=== PATIENT | female | born 1995 | race Caucasian/White ===

== ENCOUNTER 2024-05-18 14:20 | Outpatient (RCR) | payer OTHER, SELFPAY ==
[2024-05-18 15:30] LABS: HCG Quantitative 6243 mIU/mL
[2024-05-20 13:38] LABS: HCG Quantitative 4691 mIU/mL
== END 2024-05-26 12:36 | disposition home or self-care (01) ==
LOC: LAB 14:20
PROVIDERS: Visit Provider Obstetrics & Gynecology
DX: O02.1 Missed abortion (principal); Z32.01 Encounter for pregnancy test, result positive; N92.6 Irregular menstruation, unspecified
CPT/HCPCS: 36415; 84702

== ENCOUNTER 2024-05-30 12:35 | Outpatient (OUT) | payer OTHER, SELFPAY ==
--- NOTE | 2024-05-30 12:47 | US_ITS ---
The [address] [address] Patient Name: MCKINLEY HSIEH MRN: [id number] date: 1995 Sex: F Assigned Patient Location: US Current Patient Location: US Accession/Order Number: [id number] Exam Date: 05/30/2024 12:50 Report Date: 05/30/2024 15:30 At the request of: SHERIN BOYD Procedure: US OB transvaginal EXAMINATION: US OB transvaginal HISTORY: With Uncertain Viability COMPARISON: Ultrasound OB transvaginal 05/18/2024 FINDINGS: GESTATIONAL SAC: 2 adjacent gestational sacs within endometrial cavity which are slightly irregular/elongated in shape. YOLK SAC: Present within the left gestational sac. Absent within the right gestational sac. POLE: Absent CARDIAC: Absent UTERUS: Normal size and appearance. OVARIES: Right: Normal. Left: Corpus lutein cyst. CERVIX: 3.8 cm in length and closed. CUL-DE-SAC: Normal. OTHER: None. AGE BY LMP: 7 weeks 4 days PANTERA BY LMP: 01/12/2025 AGE BY US: Approximately 7 weeks 4 days by gestational sac size PANTERA BY US: 01/12/2025 US/US OB transvaginal IMPRESSION: 1. 2 adjacent gestational sacs within endometrial cavity; both are slightly irregular/elongated. One of these contains a yolk sac, the other does not. No pole at this time within either. 2. Blighted ovum cyst versus early intrauterine pregnancies. Electronically authenticated by: YAO PELAYO Date: 05/30/2024 15:30
[2024-05-30 13:53] LABS: HCG Quantitative 602 mIU/mL
== END 2024-05-30 12:36 | disposition home or self-care (01) ==
LOC: US 12:35
PROVIDERS: Visit Provider Obstetrics & Gynecology
DX: O02.1 Missed abortion (principal); N92.6 Irregular menstruation, unspecified
CPT/HCPCS: 36415; 76817; 84702

== ENCOUNTER 2024-06-06 11:00 | Outpatient (OUT) | payer OTHER, SELFPAY ==
--- OUTSIDE RECORDS SUMMARY | 2024-06-06 11:17 | XMS_ITS | CCD ---
Author Organization [facility] Care Team Providers Care Sr Vice President Name Role Phone NATESHANIA Referring Unavailable NATE SHANIA Primary Care Unavailable Nate BUDDHIST MONK - Shania MARISCAL Primary Care Provider Delicia Morales DO Primary Care Provider TWAN ., DR DUFF Consulting Unavailable TWAN ., DR DUFF Admitting Unavailable [facility] Unava ilable TWAN ., DR DUFF Attending Unavailable [facility] Unava ilable GERA SANDERS Admitting Unavailable TOMMY, GERA Attending Unavailable GERA SANDERS Consulting Unavailable MISC, DR PAINTING Admitting Unavailable [facility] Unava ilable MISC, DR PAINTING Attending Unavailable MISC, DR PAINTING Consulting Unavailable ARYA GENTILE Consulting Unavailable PAY ., DR GUADARRAMA Attending Unavailable PAY ., DR GUADARRAMA Consulting Unavailable PAY ., DR GUADARRAMA Admitting Unavailable [facility] Unava ilable PHYSICIAN, UNKNOWN Referring Unavailable SERVICES, [facility] Primary Care Unava ilable Unavailable Primary Care Provider Unavailabl e Unavailable Primary Care Provider Unavailabl e Medications Current Medications Medication Drug Class(es) Dates Sig (Normalized) Sig (Original) albuterol 0.83 mg/ml inhalation solution (3 sources) beta2-Adrenergic Agonist albuterol (2.5 MG/3M L) 0.083% nebulizer solution every 6 (six) hours. Active buprenorphine 8 mg / naloxone 2 mg sublingual film (3 sources) Partial Opioid Agonist, Opioid Antagonist Buprenorphine HCl-Naloxone HCl (Suboxone) 8-2 MG SL film 1 (one) time each day at the same time. Active 24 hr buPROPion hydrochloride 300 mg extended release oral tablet (3 sources) Aminoketone buPROPion XL (Wellbutrin XL) 300 MG 24 hr tablet 1 (one) time each day at the same time. Active diclofenac sodium 50 mg delayed release oral tablet (3 sources) Nonsteroidal Anti-inflammator y Drug Start: 6 take 1 tablet by mouth twice daily diclofenac (VOLTAREN) 50 MG enteric coated tablet Indications: Bilateral thoracic back pain Take 1 Tablet by mouth 2 times daily. 60 Tablet 3 01/17/2016 Active ferrous sulfate 325 mg oral tablet (3 sources) Start: 6 take 1 tablet by mouth twice daily at mealtime ferrous sulfate 325 (65 FE) MG tablet Take 1 Tablet by mouth 2 times daily (with meals). 60 Tablet 3 07/11/2015 Active hydroCHLOROthiazide 12.5 mg oral capsule (3 sources) Thiazide Diuretic hydroCHLOROthiazide (Microzide) 12.5 MG capsule 1 (one) time each day at the same time. Active levothyroxine sodium 0.1 mg oral capsule (3 sources) l-Thyroxine levothyroxine (Tirosint) 100 MCG capsule 1 (one) time each day at the same time. Active MULTIPLE VITAMIN IV (3 sources) MULTIPLE VITAMIN IV 1 (one) time each day at the same time. Active TABS tablet (3 sources) Start: 6 take 1 tablet by mouth once daily TABS tablet Take 1 Tablet by mouth daily. 30 Tablet 3 07/11/2015 Active Problems Active Problems Problem Classification Problem Date Documented Date Episodic/Chronic Immunizations and screening for infectious disease (6 sources) Encounter for screening for human papillomavirus (HPV); Translations: [Contact with and (suspected) exposure to infections with a predominantly sexual mode of transmission] Onset: 06-26-2022 Episodic Menopausal disorders (1 source) Hormone replacement therapy; Translations: [HORMONE REPLACEMENT THERAPY] Onset: 06-29-2022 Episodic Other aftercare (1 source) Other halfway (current) drug therapy; Translations: [OTH BAG TESTER CURRENT DRUG THERAPY] Onset: 06-29-2022 Episodic Other female genital disorders (3 sources) Abnormal uterine bleeding; Translations: [Abnormal uterine and vaginal bleeding, unspecified] Onset: 10-09-2022 10-09-2022 Chronic Other female genital disorders (1 source) Other specified noninflammatory disorders of vagina; Translations: [OTH SPEC NONINFLAMMATORY D/O VAGINA] Onset: 07-22-2022 Episodic Other screening for suspected conditions (not mental disorders or infectious disease) (4 sources) Encounter for screening for malignant neoplasm of cervix; Translations: [ENC SCREENING MALIG NEOPLASM CERV] Onset: 07-20-2022 Episodic Substance-related disorders (1 source) Opioid dependence, uncomplicated; Translations: [Opioid dependence, uncomplicated] Onset: 06-10-2023 Chronic Past or Other Problems Problem Classification Problem Date Documented Da te Episodic/Chronic Early or threatened labor (3 sources) Threatened premature labor - not delivered ; Translations: [False labor, unspecified] Onset: 07-08-2015 07-08-2015 Episodic Other ear and sense organ disorders (3 sources) Acute otitis externa of right ear; Translations: [Unspecified acute noninfective otitis externa, right ear] Onset: 10-09-2022 10-09-2022 Episodic Other upper respiratory infections (4 sources) Acute upper respiratory infection, unspecified; Translations: [ACUTE UP RESPIRATORY INFECTION UNS] Onset: 01-16-2022 Episodic Results Test Name Value Interpretation Reference Range Facility [facility] PREG QUANT HCGon 025 HCG QUANTITATIVE 602 mIU/mL [facility] Comment on above: 5-50 0.2-1 WEEK 50-500 1-2 WEEKS 100-5,000 2-3 WEEKS 500-10,000 3-4 WEEKS 1,000-50,000 4-5 WEEKS 10,000-100,000 5-6 WEEKS 15,000-200,000 6-8 WEEKS 10,000-100,000 2-3 MONTHS [facility] OB TRANSVAGINALon 0[address] [place] [address] Ultrasound Report Signed Patient: ENEDINA HSIEH MR#: [id number] : 1995 Acct:[id number] Age/Sex: 29 / F ADM Date: 05/30/24 Loc: US Attending Dr: Sherin Trent D.O. Ordering Physician: Sherin Trent D.O. Date of Service: 05/30/24 Procedure(s): US OB transvaginal Accession Number(s): [id number] cc: Sherin Trent D.O.; Physician,Non-Staff M.D. [facility] [place] [address] Patient Name: ENEDINA HSIEH MRN: [facility]:[id number] date: 1995 Sex: F Assigned Patient Location: US Current Patient Location: US Accession/Order Number: [id number] Exam Date: 05/30/2024 12:50 Report Date: 05/30/2024 15:30 At the request of: SHERIN TRENT Procedure: US OB transvaginal EXAMINATION: US OB transvaginal HISTORY: With Uncertain Viability COMPARISON: Ultrasound OB transvaginal 05/18/2024 FINDINGS: GESTATIONAL SAC: 2 adjacent gestational sacs within endometrial cavity which are slightly irregular/elongated in shape. YOLK SAC: Present within the left gestational sac. Absent within the right gestational sac. POLE: Absent CARDIAC: Absent UTERUS: Normal size and appearance. OVARIES: Right: Normal. Left: Corpus lutein cyst. CERVIX: 3.8 cm in length and closed. CUL-DE-SAC: Normal. OTHER: None. AGE BY LMP: 7 weeks 4 days PANTERA BY LMP: 01/12/2025 AGE BY US: Approximately 7 weeks 4 days by gestational sac size PANTERA BY US: 01/12/2025 US/US OB transvaginal IMPRESSION: 1. 2 adjacent gestational sacs within endometrial cavity; both are slightly irregular/elongated. One of these contains a yolk sac, the other does not. No pole at this time within either. 2. Blighted ovum cyst versus early intrauterine pregnancies. Electronically authenticated by: FIDEL CONLEY Date: 05/30/2024 15:30 Dictated By: Fidel Conley M.D. Signed By: 05/30/24 1532 DD/ 1530 TD/TT: Reaming Machine Operator For Plastic: [facility] Radiology, Radiologist, - 05/30/2024 [place] [address] Ultrasound Report Signed Patient: ENEDINA HSIEH MR#: [id number] : 1995 Acct:[id number] Age/Sex: 29 / F ADM Date: 05/30/24 Loc: US Attending Dr: Sherin Trent D.O. Ordering Physician: Sherin Trent D.O. Date of Service: 05/30/24 Procedure(s): US OB transvaginal Accession Number(s): [id number] cc: Sherin Trent D.O.; Physician,Non-Staff [place] [address] Patient Name: ENEDINA HSIEH MRN: [id number] date: 1995 Sex: F Assigned Patient Location: US Current Patient Location: US Accession/Order Number: [id number] Exam Date: 05/30/2024 12:50 Report Date: 05/30/2024 15:30 At the request of: SHERIN TRENT Procedure: US OB transvaginal EXAMINATION: US OB transvaginal HISTORY: With Uncertain Viability COMPARISON: Ultrasound OB transvaginal 05/18/2024 FINDINGS: GESTATIONAL SAC: 2 adjacent gestational sacs within endometrial cavity which are slightly irregular/elongated in shape. YOLK SAC: Present within the left gestational sac. Absent within the right gestational sac. POLE: Absent CARDIAC: Absent UTERUS: Normal size and appearance. OVARIES: Right: Normal. Left: Corpus lutein cyst. CERVIX: 3.8 cm in length and closed. CUL-DE-SAC: Normal. OTHER: None. AGE BY LMP: 7 weeks 4 days PANTERA BY LMP: 01/12/2025 AGE BY US: Approximately 7 weeks 4 days by gestational sac size PANTERA BY US: 01/12/2025 US/US OB transvaginal IMPRESSION: 1. 2 adjacent gestational sacs within endometrial cavity; both are slightly irregular/elongated. One of these contains a yolk sac, the other does not. No pole at this time within either. 2. Blighted ovum cyst versus early intrauterine pregnancies. Electronically authenticated by: FIDEL CONLEY Date: 05/30/2024 15:30 Dictated By: Fidel Conley M.D. Signed By: 05/30/24 1532 DD/ 1530 TD/TT: Reaming Machine Operator For Plastic: [facility] Radiology Study observation (narrative) [facility] US OB TRANSVAGINALOrdered By : Radiologist Radiology on 05-30-2024 [facility] Work Phone: [facility] PREG QUANT HCGon 025 HCG QUANTITATIVE 6243 mIU/mL [facility] Comment on above: 5-50 0.2-1 WEEK 50-500 1-2 WEEKS 100-5,000 2-3 WEEKS 500-10,000 3-4 WEEKS 1,000-50,000 4-5 WEEKS 10,000-100,000 5-6 WEEKS 15,000-200,000 6-8 WEEKS 10,000-100,000 2-3 MONTHS [facility] US OB TRANSVAGINALon 025 US OB TRANSVAGINAL TITLE OF EXAM: OB Ultrasound: REASON FOR EXAM: Dating COMPARISON: None TECHNIQUE: Grayscale and M-mode Doppler imaging is performed. FINDINGS: Measurements: Sac: 2.5 cm CRL: 0.3 cm GA for sonogram: 5.9 wk (05.4-06.4) Cervix Length: 4.4 cm PANTERA: 01/12/2025 Anatomy Observed: Gestational Sac: Visualized Irregular shaped Yolk Sac: Visualized Pole: Question pole Cardiac Activity: Not Visualized Uterus: Normal Uterine Position: Anteverted, anteflexed Right Ovary: 4.1 x 3.1 x 1.9 cm Volume: 12.7 cc Normal Left Ovary: 3.3 x 1.4 x 3.1 cm Volume: 7.4 cc Cervical Length: 4.4 cm Closed IMPRESSION: Very irregular appearing gestational sac and two prominent yolk sacs. pole appears small and abnormal and no cardiac activity is identified. Recommend short-term ultrasound follow-up to reassess. Dictated and transcribed 05/19/24/dpd This report has been electronically signed and approved by the interpreting radiologist. Normal Not Available Comment on above: Order Comment: US OB TRANSVAGINAL No LMP recorded. DRUG SCREEN, URINEon 024 AMPHETAMINE/METHAMP Negative Normal NEG [facility] Comment on above: Result Comment: AMPH /METH screening cut off = 1000 ng/mL Performed By: #### D DIAZ #### [facility] ([id number]) [address] [place] [address] BARBITURATES Negative Normal NEG [facility] Comment on above: Result Comment: Josie iturates screening cut off value = 200 ng/mL Performed By: #### D DIAZ #### [facility] ([id number]) [address], [address] [place] [address] BENZODIAZEPINES Negative Normal NEG [facility] Comment on above: Result Comment: Wilbert odiazepines screening cut off value = 200 ng/mL Performed By: #### D DIAZ #### [facility] ([id number]) [address], [address] [place] [address] CANNABINOIDS Negative Normal NEG [facility] Comment on above: Result Comment: Jared abinoids/THC screening cut off value = 50 ng/mL Performed By: #### D DIAZ #### [facility] ([id number]) [address], [address] [place] [address] COCAINE METABOLITE Negative Normal NEG [facility] Comment on above: Result Comment: Coca ine screening cut off value = 300 ng/mL Performed By: #### D DIAZ #### [facility] ([id number]) [address], [address] [place] [address] ECSTASY Negative Normal [facility] Comment on above: Result Comment: Ecst asy screening cut off value = 500 ng/mL This report is intended for use in clinical monitoring or management of patients. Performed By: #### D DIAZ #### [facility] ([id number]) [address], [address] [place] [address] METHADONE Negative Normal NEG [facility] Comment on above: Result Comment: Meth adone screening cut off value = 300 ng/mL. Performed By: #### D DIAZ #### [facility] ([id number]) [address], [address] [place] [address] OPIATES Negative Normal NEG [facility] Comment on above: Result Comment: Opia мария screening cut off value = 300 ng/mL NOTE: This test is used for the detection of codeine, hydrocodone (>1000 ng/mL), morphine and hydromorphone (>900 ng/mL) in urine. Performed By: #### D DIAZ #### [facility] ([id number]) [address] [place] [address], [address] [place] [address] OXYCODONE Negative Normal NEG [facility] Comment on above: Result Comment: Oxyc odone screening cut off value = 300 ng/mL NOTE: This test is used for the detection of oxycodone and oxymorphone in urine. Performed By: #### D DIAZ #### [facility] ([id number]) [address] [place] [address], [facility] [address] [place] [address] PHENCYCLIDINE Negative Normal NEG [facility] Comment on above: Result Comment: Phen cyclidine screening cut off value = 25 ng/mL Performed By: #### D DIAZ #### [facility] ([id number]) [address] [place] [address], [address] [place] [address] Reference Lab Test IDon 05-27 BUPRENORPHINE, URINE, QUANTITATIVE/CONFIRMATI ON See Below Normal [facility] Comment on above: Result Comment: NOTE TEST RESULT FLAG UNIT REF.RANGE -------- Norbuprenorphine, Ur 778 H ng/mL <20 Norbuprenorphine is the primary active metabolite of buprenorphine. Presence of norbuprenorphine indicates use of buprenorphine containing drugs (e.g. Suboxone, Buprenex). Buprenorphine, Ur 171 H ng/mL <20 Presence of buprenorphine indicates use of buprenorphine containing drugs (e.g. Suboxone or Buprenex). Buprenorphine is metabolized to norbuprenorphine. Note See Below This test is for medical use only. This test was developed and its performance characteristics determined by [facility]'s Misbah JSebastian [facility] ([facility]). It has not been cleared or approved by the FDA. [facility] is regulated under CLIA as qualified to perform high-complexity testing. This test is used for clinical purposes. It should not be regarded as investigational or for research. Specimen Validity Quality See below Specimen quality results within acceptable limits Specimen Validity Creatinine 92.1 mg/dL 20.0-300.0 Specimen Validity PH 7.7 4.5-8.0 Specimen Validity Specific [place] 1.012 1.003-1.035 Specimen Validity Oxidants <38 mg/L <200 Specimen Validity Nitrites <50 mg/L <500 Specimen Validity Chromate <10 mg/L <50 Test Performed By: [place] [address] Case Managers: Toni Mitchell III, M.D. [place] #[id number] Performed By: #### 3 0896-5 #### [facility] ([id number]) [address] [place] [address], [place] [address] PAP ACOG PANEL 2: 21 to 29on 07-27-2022 . . Normal [facility] Comment on above: Performed By: #### 4 [id number] #### [facility] [address] [place] [address] [address] Reuben Courtney DIAGNOSIS: Comment [facility] Comment on above: Result Comment: NEGA TIVE FOR INTRAEPITHELIAL LESION OR MALIGNANCY. Performed By: #### 4 [id number] #### [facility] [address] [place] [address] [address] Reuben Courtney Methodology: Comment [facility] Comment on above: Result Comment: This liquid based ThinPrep(R) pap test was screened with the use of an image guided system. Performed By: #### 4 [id number] #### [facility] [address] [place] [address] [address] Reuben Courtney Note: Comment [facility] Comment on above: Result Comment: The Pap smear is a screening test designed to aid in the detection of premalignant and malignant conditions of the uterine cervix. It is not a diagnostic procedure and should not be used as the sole means of detecting cervical cancer. Both false-positive and false-negative reports do occur. . Performed By: #### 4 [id number] #### [facility] [address] [place] [address] Dr. Reuben Courtney Performed by: Comment Normal [facility] Comment on above: Result Comment: Jeanne Avila, Supervisor Nutritional Yeast (ASCP) Performed By: #### 4 [id number] #### [facility] [address] [place] [address] Dr. Reuben Corutney Reflex Criteria: Comment Normal [facility] Comment on above: Result Comment: The HPV DNA reflex criteria were not met with this specimen result therefore, no HPV testing was performed. . Performed By: #### 4 [id number] #### [facility] [address] [place] [address] Dr. Reuben Courtney Specimen adequacy: Comment Normal [facility] Comment on above: Result Comment: Sati sfactory for evaluation. Endocervical and/or squamous metaplastic cells (endocervical component) are present. Performed By: #### 4 [id number] #### [facility] [address] [place] [address] Dr. Reuben Courtney Age Gdln ACOG Testing - Normal [facility] Comment on above: Performed By: #### 4 [id number] #### [facility] [address] [place] [address] Dr. Reuben Courtney CHLAMYDIA/GONOCOCCUS ISABELL (SW AB/URINE/PAPon 07-23-2022 Chlamydia trachomatis, ISABELL Negative Normal Negative [facility] Comment on above: Performed By: #### C T/NGNA #### [facility] [address] [place] [address] Dr. Reuben Courtney Neisseria gonorrhoeae, ISABELL Negative Normal Negative [facility] Comment on above: Performed By: #### C T/NGNA #### [facility] [address] [place] [address] Dr. Reuben Courtney VAGINITIS/VAGINOSIS DNA PROB Massimo 07-22-2022 Connie species Negative Normal Negative [facility] Comment on above: Performed By: #### V AGINT #### [facility] [address] [place] [address] Dr. Reuben Courtney Gardnerella vaginalis Negative Normal Negative [facility] Comment on above: Performed By: #### V AGINT #### [facility] [address] [place] [address] Dr. Reuben Courtney Trichomonas vaginalis Negative Normal Negative [facility] Comment on above: Performed By: #### V AGINT #### [facility] [address] [place] [address] Dr. Reuben Courtney HEP B SURFACE ANTIGEN SCREEN on 06-27-2022 HBsAg Screen Negative Normal Negative [facility] Comment on above: Performed By: #### H BSANS #### [facility] [address] [place] [address] Dr. Reuben Courtney HEPATITIS C ANTIBODYon 06-27 Hep C Virus Ab Non-Reactive Normal Non Reactive [facility] Comment on above: Result Comment: HCV antibody alone does not differentiate between previously resolved infection and active infection. Equivocal and Reactive HCV antibody results should be followed up with an HCV RNA test to support the diagnosis of active HCV infection. Performed By: #### H CV #### [facility] [address] [place] [address] Dr. Reuben Courtney HERPES SIMPLEX 1/2 IGGon HSV 1 IgG, Type Spec <0.91 Normal 0.00-0.90 [facility] Comment on above: Result Comment: Nega tive <0.91 Equivocal 0.91 - 1.09 Positive >1.09 Note: Negative indicates no antibodies detected to HSV-1. Equivocal may suggest early infection. If clinically appropriate, retest at later date. Positive indicates antibodies detected to HSV-1. Performed By: #### H SV IGG #### [facility] [address] [place] [address] Dr. Reuben Courtney HSV 2 IgG Type Spec <0.91 Normal 0.00-0.90 [facility] Comment on above: Result Comment: Nega tive <0.91 Equivocal 0.91 - 1.09 Positive >1.09 Note: Negative indicates no HSV-2 antibodies detected. Positive indicates HSV-2 antibodies detected. Equivocal and low positive HSV-2 screens (Index 0.91-5.00) may be false positive and are reflexed to supplemental testing in accordance with CDC guidelines. Performed By: #### H SV IGG #### [facility] [address] [place] [address] Dr. Reuben Courtney HIV 1 AND 2 WITH REFLEXon HIV Screen 4th Generation wRfx Non-Reactive Normal Non Reactive [facility] Comment on above: Result Comment: HIV Negative HIV-1/HIV-2 antibodies and HIV-1 p24 antigen were NOT detected. There is no laboratory evidence of HIV infection. Performed By: #### H IV12 #### [facility] [address] [place], [place] [address] Dr. Reuben Courtney RPR QUANTon 06-27-2022 Rapid Plasma Reagin, Quant Non-Reactive Normal NonRea<1:1 [facility] Comment on above: Result Comment: Plea se Note: This test does not meet current guidelines for screening and diagnosis of syphilis. This test is intended for following treatment response in patients being treated for syphilis infection. To screen for syphilis infection, a reflex cascade that includes both RPR and a treponema-specific assay should be utilized, such as Treponema pallidum (Syphilis) Screening [place] (212375) or Rapid Plasma Reagin (RPR) Test With Reflex to Quantitative RPR and Confirmatory Treponema pallidum Antibodies (171817). Performed By: #### R PRQ #### [facility] [address] [place] [address] [address] [address] Reuben Courtney XR CHEST 2 Von 01-16-2022 XR CHEST 2 V EXAM: XR CHEST 2 V HISTORY: . Acute upper respiratory infection . COMPARISON: None. TECHNIQUE: Frontal and lateral chest FINDINGS: Heart and vascularity are unremarkable. Lungs are free of focal infiltrates. No acute bony abnormality is appreciated. IMPRESSION: No acute heart or lung disease identified. Electronically authenticated by: ARYA GENTILE Date: 2022-01-16 10:40 Normal [facility] CBCon 05-02-2019 Erythrocyte distribution width (RBC) [Ratio] 13.8 % Normal 11.8-14.4 [facility] Comment on above: Performed By: #### C BC, CP, HCG #### [facility] [address] [place] [address] Clipper Machine Operator: Jeffery Wagoner MD #### PHEP, HIVCMB #### [place] [address] [place], [place] [id number] Clipper Machine Operator: Tono Lopez MD Hematocrit (Bld) [Volume fraction] 41.6 % Normal 36.3-47.1 [facility] Comment on above: Performed By: #### C BC, CP, HCG #### [address] [place] [id number] Clipper Machine Operator: Jeffery Wagoner MD #### PHEP, HIVCMB #### [address] [id number] Clipper Machine Operator: Tono Lopez MD Hemoglobin (Bld) [Mass/Vol] 13.5 g/dL Normal 11.9-15.1 [facility] Comment on above: Performed By: #### C BC, CP, HCG #### [address] [place] [address] Clipper Machine Operator: Jeffery Wagoner MD #### PHEShawnee, HIVCMB #### [address] [id number] Clipper Machine Operator: Tono Lopez MD MCH (RBC) [Entitic mass] 27.7 pg Normal 25.2-33.5 [facility] Comment on above: Performed By: #### C BC, CP, HCG #### [address] [place] [address] Clipper Machine Operator: Jeffery Wagoner MD #### PHEP, HIVCMB #### [address] [phone] Clipper Machine Operator: Tono Lopez MD MCHC (RBC) [Mass/Vol] 32.5 g/dL Normal 28.4-34.8 [facility] Comment on above: Performed By: #### C BC, CP, HCG #### [facility] [address] [place], [place] [phone] Clipper Machine Operator: Jeffery Wagoner MD #### PHEP, HIVCMB #### [address] [phone] Clipper Machine Operator: Tono Lopez MD MCV (RBC) [Entitic vol] 85.2 fL Normal 82.6-102.9 M [facility] Comment on above: Performed By: #### C BC, CP, HCG #### [facility] [address] [place] [phone] Clipper Machine Operator: Jeffery Wagoner MD #### PHEP, HIVCMB #### [address] [phone] Clipper Machine Operator: Tono Lopez MD NRBC Automated 0.0 per 100 WBC Normal 0.0 [facility] Comment on above: Performed By: #### C BC, CP, HCG #### [facility] [address] [place] [phone] Clipper Machine Operator: Jeffery Wagoner MD #### PHEShawnee, HIVCMB #### [address] [phone] Clipper Machine Operator: Tono Lopez MD Platelet mean volume (Bld) [Entitic vol] 9.0 fL Normal 8.1-13.5 [facility] Comment on above: Performed By: #### C BC, CP, HCG #### [facility] [address] [place], [place] [phone] Clipper Machine Operator: Jeffery Wagoner MD #### PHEP, HIVCMB #### [address] [phone] Clipper Machine Operator: Tono Lopez MD Platelets (Bld) [#/Vol] 564 10*3/uL High 138-453 [facility] Comment on above: Performed By: #### C BC, CP, HCG #### [facility] [address] [place], [place] [phone] Clipper Machine Operator: Jeffery Wagoner MD #### PHEP, HIVCMB #### [address] [place], [place] [phone] Clipper Machine Operator: Tono Lopez MD RBC (Bld) [#/Vol] 4.88 10*6/uL Normal 3.95-5.11 [facility] Comment on above: Performed By: #### C BC, CP, HCG #### [facility] [address] [place] [address] Clipper Machine Operator: Jeffery Wagoner MD #### PHEP, HIVCMB #### [address] [place], [place] [phone] Clipper Machine Operator: Tono Lopez MD WBC (Bld) [#/Vol] 12.2 10*3/uL High 3.5-11.3 [facility] Comment on above: Performed By: #### C BC, CP, HCG #### [facility] [address] [place], [place] [phone] Clipper Machine Operator: Jeffery Wagoner MD #### PHEP, HIVCMB #### [address] [phone] Clipper Machine Operator: Tono Lopez MD CBCOrdered By: Shania Sullivan on 05-02-2019 Erythrocyte distribution width (RBC) [Ratio] 13.8 % 11.8 - 14.4 % [employer] Phone: Hematocrit (Bld) [Volume fraction] 41.6 % 36.3 - 47.1 % [employer] Phone: Hemoglobin (Bld) [Mass/Vol] 13.5 g/dL 11.9 - 15.1 g/dL [employer] Phone: Interpretation and review of laboratory results Abnormal [employer] Phone: MCH (RBC) [Entitic mass] 27.7 pg 25.2 - 33.5 pg [employer] Phone: MCHC (RBC) [Mass/Vol] 32.5 g/dL 28.4 - 34.8 g/dL [employer] Phone: MCV (RBC) [Entitic vol] 85.2 fL 82.6 - 102.9 fL [employer] Phone: NRBC Automated 0.0 0.0 per 100 WBC [employer] Phone: Platelet mean volume (Bld) [Entitic vol] 9.0 fL 8.1 - 13.5 fL [employer] Phone: Platelets (Bld) [#/Vol] 564 10*3/uL High [facility] Phone: RBC (Bld) [#/Vol] 4.88 10*6/uL 3.95 - 5.1 1 m/uL [facility] Phone: WBC (Bld) [#/Vol] 12.2 10*3/uL [employer] [facility] Phone: Comp Metabolic Profon 2019 (cont.) Normal [facility] Comment on above: Result Comment: Aver age GFR for 20-29 years old: 116 mL/min/1.73sq m Chronic Kidney Disease: <60 mL/min/1.73sq m Kidney failure: <15 mL/min/1.73sq m eGFR calculated using average adult body mass. Additional eGFR calculator available at: http://www.[employer].com/multiple_crcl_2011.htm Performed By: #### C BC, CP, HCG #### [facility] [address] [place] [address] Clipper Machine Operator: Jeffery Wagoner MD #### PHEP, HIVCMB #### [facility] [employer] [facility] [place] [address] Clipper Machine Operator: Tono Lopez MD Albumin [Mass/Vol] 4.2 g/dL Normal 3.5-5.2 [facility] Comment on above: Performed By: #### C BC, CP, HCG #### [facility] [address] [place], [place] [phone] Clipper Machine Operator: Jeffery Wagoner MD #### PHEP, HIVCMB #### [address] [phone] Clipper Machine Operator: Tono Lopez MD Albumin/Globulin [Mass ratio] 1.4 {ratio} Normal 1.0-2.5 [facility] Comment on above: Performed By: #### C BC, CP, HCG #### [address] [place], [place] [phone] Clipper Machine Operator: Jeffery Wagoner MD #### PHEP, HIVCMB #### [address] [address] Clipper Machine Operator: Tono Lopez MD Alkaline Phos 90 U/L Normal 35-104 [facility] Comment on above: Performed By: #### C BC, CP, HCG #### [address] [place], [place] [phone] Clipper Machine Operator: Jeffery Wagoner MD #### PHEP, HIVCMB #### [address] [address] Clipper Machine Operator: Tono Lopez MD ALT [Catalytic activity/Vol] 19 U/L Normal 5-33 [facility] Comment on above: Performed By: #### C BC, CP, HCG #### [address] [place], [place] [phone] Clipper Machine Operator: Jeffery Wagoner MD #### PHEP, HIVCMB #### [address] [address] Clipper Machine Operator: Tono Lopez MD Anion gap [Moles/Vol] 15 mmol/L Normal 9-17 [facility] Comment on above: Performed By: #### C BC, CP, HCG #### [facility] [address] [place], [place] [phone] Clipper Machine Operator: Jeffery Wagoner MD #### PHEP, HIVCMB #### [address] [address] Clipper Machine Operator: Tono Lopez MD AST [Catalytic activity/Vol] 23 U/L Normal <32 [facility] Comment on above: Performed By: #### C BC, CP, HCG #### [address] [place], [place] [phone] Clipper Machine Operator: Jeffery Wagoner MD #### PHEP, HIVCMB #### [address] [address] Clipper Machine Operator: Tono Lopez MD Bilirubin Ql (U) 0.32 mg/dL Normal 0.3-1.2 [facility] Comment on above: Performed By: #### C BC, CP, HCG #### [address] [place], [place] [phone] Clipper Machine Operator: Jeffery Wagoner MD #### PHEP, HIVCMB #### [address] [address] Clipper Machine Operator: Tono Lopez MD BUN/CRE Ratio 3 Low 9-20 [facility] Comment on above: Performed By: #### C BC, CP, HCG #### [facility] [address] [place] [address] [address] [place], [place] [phone] Clipper Machine Operator: Jeffery Wagoner MD #### PHEP, HIVCMB #### [address] [address] Clipper Machine Operator: Tono Lopez MD Calcium [Mass/Vol] 9.3 mg/dL Normal 8.6-10.4 [facility] Comment on above: Performed By: #### C BC, CP, HCG #### [facility] [address] [place], [place] [phone] Clipper Machine Operator: Jeffery Wagoner MD #### PHEP, HIVCMB #### [address] [phone] Clipper Machine Operator: Tono Lopez MD Chloride [Moles/Vol] 93 mmol/L Low 98-107 [facility] Comment on above: Performed By: #### C BC, CP, HCG #### [facility] [address] [place] [address] Clipper Machine Operator: Jeffery Wagoner MD #### PHEP, HIVCMB #### [address] [phone] Clipper Machine Operator: Tono Lopez MD CO2 [Moles/Vol] 27 mmol/L Normal 20-31 [facility] Comment on above: Performed By: #### C BC, CP, HCG #### [facility] [address] [place], [place] [phone] Clipper Machine Operator: Jeffery Wagoner MD #### PHEP, HIVCMB #### [address] [address] Clipper Machine Operator: Tono Lopez MD Creatinine [Mass/Vol] 0.59 mg/dL Normal 0.50-0.90 [facility] Comment on above: Performed By: #### C BC, CP, HCG #### [facility] [address] [place] [address] Clipper Machine Operator: Jeffery Wagoner MD #### PHEP, HIVCMB #### [address] [address] Clipper Machine Operator: Tono Lopez MD GFR, Amer >60 Normal >60 [facility] Comment on above: Performed By: #### C BC, CP, HCG #### [facility] [address] [place], [place] [phone] Clipper Machine Operator: Jeffery Wagoner MD #### PHEP, HIVCMB #### [address] [place], [place] 4509508 Clipper Machine Operator: Tono Lopez MD GFR,non Amer >60 Normal >60 [facility] Comment on above: Performed By: #### C BC, CP, HCG #### [facility] [address] [place], [place] [phone] Clipper Machine Operator: Jeffery Wagoner MD #### PHEP, HIVCMB #### [address] [phone] Clipper Machine Operator: Tono Lopez MD Glucose [Mass/Vol] 96 mg/dL Normal 70-99 [facility] Comment on above: Performed By: #### C BC, CP, HCG #### [facility] [address] [place], [place] 9476583 Clipper Machine Operator: Jeffery Wagoner MD #### PHEP, HIVCMB #### [address] [address] Clipper Machine Operator: Tono Lopez MD Potassium [Moles/Vol] 3.7 mmol/L Normal 3.7-5.3 [facility] Comment on above: Performed By: #### C BC, CP, HCG #### [facility] [address] [place], [place] [phone] Clipper Machine Operator: Jeffery Wagoner MD #### PHEP, HIVCMB #### [address] [address] Clipper Machine Operator: Tono Lopez MD Protein [Mass/Vol] 7.1 g/dL Normal 6.4-8.3 [facility] Comment on above: Performed By: #### C BC, CP, HCG #### [facility] [address] [place], [place] [phone] Clipper Machine Operator: Jeffery Wagoner MD #### PHEP, HIVCMB #### [facility] [address] [place] [address] Clipper Machine Operator: Tono Lopez MD Sodium [Moles/Vol] 135 mmol/L Normal 135-144 [facility] Comment on above: Performed By: #### C BC, CP, HCG #### [facility] [address] [place] [address] [address]. [place], [place] [phone] Clipper Machine Operator: Jeffery Wagoner MD #### PHEP, HIVCMB #### [address] [address] Clipper Machine Operator: Tono Lopez MD Staging: Normal [facility] Comment on above: Result Comment: Stag e 1: Some kidney damage normal GFR Stage 2: Mild kidney damage GFR 60-89 Stage 3: Moderate kidney damage GFR 30-59 Stage 4: Severe kidney damage GFR 15-29 Stage 5: Severe kidney damage GFR <15 ESRD - chronic treatment by dialysis or transplant Performed By: #### C BC, CP, HCG #### [address] [place], [place] 8897083 Clipper Machine Operator: Jeffery Wagoner MD #### PHEP, HIVCMB #### [facility] [address] [place] [address] Clipper Machine Operator: Tono Lopez MD Urea nitrogen [Mass/Vol] 2 mg/dL Low 6-20 [facility] Comment on above: Performed By: #### C BC, CP, HCG #### [address] [place], [place] [phone] Clipper Machine Operator: Jeffery Wagoner MD #### PHEP, HIVCMB #### [address] [place] [address] Clipper Machine Operator: Tono Lopez MD Comprehensive Metabolic Pane lOrdered By: Shania Sullivan on 05-02-2019 Albumin [Mass/Vol] 4.2 g/dL 3.5 - 5.2 g/dL [facility] Work Phone: Albumin/Globulin [Mass ratio] 1.4 {ratio} [facility] Phone: ALP [Catalytic activity/Vol] 90 U/L 35 - 104 U/L [facility] Work Phone: ALT [Catalytic activity/Vol] 19 U/L 5 - 33 U/L [facility] Work Phone: Anion gap [Moles/Vol] 15 mmol/L 9 - 17 mmol/L [facility] Phone: AST [Catalytic activity/Vol] 23 U/L <32 [facility] Phone: Bilirubin [Mass/Vol] 0.32 mg/dL 0.3 - 1 .2 mg/dL [facility] Phone: Bun/Cre Ratio 3 Low [employer] Work Phone: Calcium [Mass/Vol] 9.3 mg/dL 8.6 - 10. 4 mg/dL [facility] Phone: Chloride [Moles/Vol] 93 mmol/L Low 98 - 10 7 mmol/L [facility] Phone: CO2 [Moles/Vol] 27 mmol/L 20 - 31 mmol/L [facility] Work Phone: Creatinine [Mass/Vol] 0.59 mg/dL 0.5 - 0.9 mg/dL [employer] Phone: GFR >60 >60 mL/min [employer] Work Phone: GFR Comment [facility] Phone: Comment on above: Average GFR for 20-2 9 years old: 116 mL/min/1.73sq m Chronic Kidney Disease: <60 mL/min/1.73sq m Kidney failure: <15 mL/min/1.73sq m eGFR calculated using average adult body mass. Additional eGFR calculator available at: http://www.[employer]multiple_crcl_2012.htm GFR Non- >60 >60 mL/min [employer] Phone: GFR Staging [facility] Phone: Comment on above: Stage 1: Some kidney damage normal GFR Stage 2: Mild kidney damage GFR 60-89 Stage 3: Moderate kidney damage GFR 30-59 Stage 4: Severe kidney damage GFR 15-29 Stage 5: Severe kidney damage GFR <15 ESRD - chronic treatment by dialysis or transplant Glucose [Mass/Vol] 96 mg/dL 70 - 99 mg/dL [facility] [employer] Phone: Interpretation and review of laboratory results Abnormal [facility] Phone: Potassium [Moles/Vol] 3.7 mmol/L 3.7 - 5.3 mmol/L [facility] Phone: Protein [Mass/Vol] 7.1 g/dL 6.4 - 8.3 g/dL [facility] Phone: Sodium [Moles/Vol] 135 mmol/L 135 - 144 mmol/L [facility] Phone: Urea nitrogen [Mass/Vol] 2 mg/dL Low 6 - 20 mg/dL [facility] Phone: HCG Qualitative, SerumOrdere d By: Shania Sullivan on 05-02-2019 hCG Qual Negative NEGATIVE [email or web address] Phone: Comment on above: Specimens with hCG l evels near the threshold of the test (25 mIU/mL) may give a negative or indeterminate result. In such cases, another test should be performed with a new specimen in 48-72 hours. If early is suspected clinically in this setting, correlation with quantitative serum b-hCG level is suggested. [employer] has confirmed the use of plasma for this test. This has not been cleared or approved by the U.S. Food and Drug Administration. The FDA has determined that such clearance is not necessary. HCG Screen, Bloodon 05-02-19 20 HCG Qn Negative Normal NEG [facility] Comment on above: Result Comment: Spec imens with hCG levels near the threshold of the test (25 mIU/mL) may give a negative or indeterminate result. In such cases, another test should be performed with a new specimen in 48-72 hours. If early is suspected clinically in this setting, correlation with quantitative serum b-hCG level is suggested. [facility] has confirmed the use of plasma for this test. This has not been cleared or approved by the U.S. Food and Drug Administration. The FDA has determined that such clearance is not necessary. Performed By: #### C BC, CP, HCG #### [address] [place] [address] Clipper Machine Operator: Jeffery Wagoner MD #### PHEP, HIVCMB #### [address] [address] Clipper Machine Operator: Tono Lopez MD HIV Ag/Abon 05-02-2019 HIV Ag/Ab NONREACTIVE Normal NR [facility] Comment on above: Result Comment: No l aboratory evidence of HIV infection. If acute HIV infection is suspected, consider testing for HIV-1 RNA. Performed By: #### C BC, CP, HCG #### [address] [place] [address] Clipper Machine Operator: Jeffery Wagoner MD #### PHEP, HIVCMB #### [address] [place], [place] [phone] Clipper Machine Operator: Tono Lopez MD HIV ScreenOrdered By: Shania Sullivan on 05-02-2019 HIV Ag/Ab Non-Reactive NONREACTIVE [facility] Work Phone: Comment on above: No laboratory eviden ce of HIV infection. If acute HIV infection is suspected, consider testing for HIV-1 RNA. Hepatitis Acute [facility] 05-02 Hep A Ab,IgM NONREACTIVE Normal NR [facility] Comment on above: Performed By: #### C BC, CP, HCG #### [address] [place] [address] Clipper Machine Operator: Jeffery Wagoner MD #### PHEP, HIVCMB #### [address] [address] Clipper Machine Operator: Tono Lopez MD Hep B Core Ab,IgM NONREACTIVE Normal NR [facility] Comment on above: Performed By: #### C BC, CP, HCG #### [address] [place] [address] Clipper Machine Operator: Jeffery Wagoner MD #### PHEP, HIVCMB #### [address] [address] Clipper Machine Operator: Tono Lopez MD Hep B Surf Ag NONREACTIVE Normal NR [facility] Comment on above: Performed By: #### C BC, CP, HCG #### [address] [place] [address] Clipper Machine Operator: Jeffery Wagoner MD #### PHEP, HIVCMB #### [address] [address] Clipper Machine Operator: Tono Lopez MD Hep C Ab NONREACTIVE Normal [facility] Comment on above: Result Comment: The hepatitis C procedure used in our laboratory is a Chemiluminescent test specific for three recombinant HCV antigens. A negative anti-HCV result indicates that the antibodies to hepatitis C virus are not present at this time. Individuals with reactive anti-HCV should be considered infected and infectious until proven otherwise. Confirmation of all equivocal or reactive results is recommended by ordering HCV RNA by PCR. Performed By: #### C BC, CP, HCG #### [address] [place] [address] Clipper Machine Operator: Jeffery Wagoner MD #### PHEP, HIVCMB #### [address] [address] Clipper Machine Operator: Tono Lopez MD Hepatitis Panel, AcuteOrdere d By: Shania Sullivan on 05-02-2019 HAV IgM IA Qn (S) Non-Reactive NONREACTIVE [employer] Work Phone: Hep B Core Ab, IgM Non-Reactive NONREACTIVE [employer] Work Phone: Hepatitis B Surface Ag Non-Reactive NONREACTIVE [employer] [facility] Work Phone: Hepatitis C Ab Non-Reactive NONREACTIVE [employer] [facility] Work Phone: Comment on above: The hepatitis C procedure used in our laboratory is a Chemiluminescent test specific for three recombinant HCV antigens. A negative anti-HCV result indicates that the antibodies to hepatitis C virus are not present at this time. Individuals with reactive anti-HCV should be considered infected and infectious until proven otherwise. Confirmation of all equivocal or reactive results is recommended by ordering HCV RNA by PCR. Encounters Encounter Date Encounter Type Care Provider Facility Start: 05-30-2024 End: 05-30-2024 Clinisync Result Encounter Sherin Twan DO Work Phone: [facility] Unsolicited Start: 05-30-2024 End: 05-30-2024 Clinisync Result Encounter Sherin Twan DO Work Phone: [facility] External [facility] Unsolicited Start: 05-18-2024 End: 05-18-2024 Clinisync Result Encounter Sherin Twan DO Work Phone: [facility] External [facility] Unsolicited Start: 05-18-2024 End: 05-18-2024 Clinisync Result Encounter Sherin Twan DO Work Phone: [facility] External [facility] Unsolicited Start: 05-18-2024 End: 05-18-2024 ambulatory Not Available Start: 10-10-2023 End: 10-10-2023 Letter encounter Delicia Uy DO [facility] Start: 07-04-2023 Letter encounter [facility] Work Phone: Start: 06-10-2023 End: 06-11-2023 ambulatory UNKNOWN PHYSICIAN [facility] Start: 07-20-2022 End: 07-20-2022 ambulatory [facility] Facility:[facility] Start: 07-05-2022 Letter encounter Delicia Morales DO Work Phone: [facility] Start: 06-26-2022 End: 06-27-[address] SHERIN TRENT . Facility:[facility] Start: 01-16-2022 End: 01-17-[address] [facility] Facility:[facility] Start: 05-02-2019 End: 05-03-2019 Patient encounter procedure SHANIA SULLIVAN [facility] Start: 05-02-2019 End: 05-02-2019 Subsequent hospital visit by physician Shania Cole CNP Work Phone: [facility] Laboratory Procedures Date Procedure Procedure Detail Performing Clinician Start: 05-30-2024 US OB TRANSVAGINAL Core y Twan DO Work Phone: Start: 05-30-2024 [facility] PREG QUANT HCG Core y Twan DO Work Phone: Start: 05-18-2024 [facility] PREG QUANT HCG Core y Twan DO Work Phone: Start: 05-02-2019 Acute hepatitis panel E [facility]UNGJOSE NATE Start: 05-02-2019 Antibody hiv-1&hiv-2 single result SHANIA SULLIVAN Start: 05-02-2019 Blood count complete automated SHANIA SULLIVAN Start: 05-02-2019 Comprehensive metabo lic panel SHANIA SULLIVAN Start: 05-02-2019 Gonadotropin chorion ic qualitative SHANIA SULLIVAN Start: 05-02-2019 Antibody hiv-1&hiv-2 single result Shania Sullivan APRN - CUSTOMER SERVICE REPRESENTATIVE TEACHER Work Phone: Start: 05-02-2019 Comprehensive metabo lic panel Shania Sullivan APRN - CUSTOMER SERVICE REPRESENTATIVE TEACHER Work Phone: Plan of Treatment Date Care Activity Detail Author Start: 2046 Shingles (RZV) Vacci ne (1 of 2) Shingles (RZV) Vaccine (1 of 2) [facility] Start: 05-21-2025 Tetanus vaccination Tetanus (T d or Tdap) [facility] Start: 06-01-2024 End: 06-01-2024 ambulatory 06/01/2024 11:00 AM EST Initial [facility] [address] [place] [address] [facility] Start: 06-01-2024 End: 06-01-2024 Professional / ancillary services management 06/01/2024 10:30 AM EST Ancillary Procedure [facility] [address] [place] [address] [facility] Start: 12-25-2022 COVID-19 Vaccine ( season) COVID-19 Vaccine ( season) [facility] Start: 12-25-2022 Influenza vaccination Influenza Vacc ine (#1) [facility] Start: 01-24-2022 Influenza vaccination Influenza Vacc ine (#1) [facility] Start: 2017 Screening for malign ant neoplasm of cervix Pap Smear [facility] Start: 2014 Hepatitis C screening Hepatitis C An tibody [facility] Start: 1996 COVID-19 Vaccine (#1) COVID-19 Vacci ne (#1) [facility] Immunizations Immunization Date Immunization Notes Care Provider Coral dickinson 05-21-2015 tetanus toxoid, redu juan david diphtheria toxoid, and acellular pertussis vaccine, adsorbed Delicia Uy DO Work Phone: [facility] 01-28-2015 influenza, injectabl e, quadrivalent, preservative free Clare Uy DO Work Phone: [facility] Work Phone: 01-28-2015 influenza virus vacc ine, unspecified formulation Delicia Uy DO Work Phone: [facility] 07-12-2014 hepatitis A vaccine, pediatric/adolescent dosage, 2 dose schedule Clare Uy DO Work Phone: [facility] 10-11-2013 hepatitis A vaccine, pediatric/adolescent dosage, 2 dose schedule Clare Uy DO Work Phone: [facility] 10-11-2013 meningococcal polysaccharide (groups A, C, Y and W-135) diphtheria toxoid conjugate vaccine (MCV4P) Clare Uy DO Work Phone: [facility] 01-26-2012 human papilloma viru s vaccine, quadrivalent Clare Uy DO Work Phone: [facility] 01-26-2012 Meningococcal, MCV4, unspecified conjugate formulation(groups A, C, Y and W-135) Clare Uy DO Work Phone: [facility] 01-26-2012 tetanus toxoid, redu juan david diphtheria toxoid, and acellular pertussis vaccine, adsorbed Delicia Uy DO Work Phone: [facility] 05-08-2008 influenza, seasonal, injectable Delicia Uy DO Work Phone: [facility] 05-24-2007 human papilloma viru s vaccine, quadrivalent Delicia Uy DO Work Phone: [facility] 01-11-2007 human papilloma viru s vaccine, quadrivalent Delicia Uy DO Work Phone: [facility] 10-21-2001 diphtheria, tetanus toxoids and acellular pertussis vaccine, 5 pertussis antigens Clare Uy DO Work Phone: [facility] 10-19-2001 measles, mumps and rubella virus vaccine Delicia Uy DO Work Phone: [facility] 10-19-2001 poliovirus vaccine, inactivated Clare Uy DO Work Phone: [facility] 05-03-1997 haemophilus influenz ae type b vaccine, HbOC conjugate Clare Uy DO Work Phone: [facility] 05-03-1997 measles, mumps and rubella virus vaccine Clare Uy DO Work Phone: [facility] 1996 haemophilus influenz ae type b vaccine, HbOC conjugate Delicia Uy DO Work Phone: [facility] 1995 hepatitis B vaccine, pediatric or pediatric/adolescent dosage Delicia Uy DO Work Phone: [facility] 1995 poliovirus vaccine, inactivated Delicia Uy DO Work Phone: [facility] 1996 haemophilus influenz ae type b vaccine, HbOC conjugate Delicia Uy DO Work Phone: [facility] 1996 poliovirus vaccine, inactivated Delicia Uy DO Work Phone: [facility] 1996 poliovirus vaccine, inactivated Delicia Uy DO Work Phone: [facility] 1995 haemophilus influenz ae type b vaccine, HbOC conjugate Delicia Uy DO Work Phone: [facility] 1996 hepatitis B vaccine, pediatric or pediatric/adolescent dosage Clare Uy DO Work Phone: [facility] 1996 hepatitis B vaccine, pediatric or pediatric/adolescent dosage Clare Uy DO Work Phone: [facility] Payers Date Payer Category Payer Private Health Insurance [facility] MEDICAID [id number] 2014 Medicaid [id number] 2014 Unknown [facility] MEDICAID xxxxxxxxxxx 2014-Present [phone] CLAIMS DEPARTMENT [address] [place] [address] xxxxxxxxxxx [id number] 1996 Unknown [id number] 1996 Unknown [id number] [id number] 1996 Unknown [id number] [id number] 1996 Unknown [id number] 593 1996 Unknown [id number] 593 1996 Unknown [id number] 1996 Unknown [id number] [id number] 1959 Unknown [id number] 1959 Unknown [id number] Social History Date Type Detail Facility Tobacco smoking stat us MAIS Unknown if ever smoked [employer] Work Phone: Start: 1995 Sex Assigned At Not on file [employer] Phone: Start: 01-24-2013 End: 09-30-2022 Tobacco smoking status MAIS Smokes tobacco daily [facility] Start: 01-24-2013 History of tobacco use Cigarette Smo ker [facility] Start: 01-17-2016 End: 10-09-2022 Cigarettes smoked current (pack per day) - Reported 0.5 [facility] Start: 01-17-2016 Tobacco use and exposure Smokeless tobacco non-user [facility] Start: 06-10-2021 Alcohol intake Current non-dr tongue and groove machine feeder of alcohol (finding) [facility] Start: 09-11-2018 End: 10-09-2022 Tobacco use panel [employer] Work Phone: Start: 10-09-2022 Alcoholic beverage intake Lifetime non-drinker (finding) [facility] Start: 09-30-2022 Tobacco Comment 5 or less cigarettes/day. [facility] Start: 09-30-2022 Alcohol Comment Caffeine intak e: 1-2 cups per day [facility] Summary Purpose Family History No Family History Records FoundNo Family History Records FoundNo Family History Records FoundNo Family History Records Found Advance Directives Documents on File Type Date Recorded Patient Facilities Maintenance Engineer Expl anation Advance Directives and Living Will Power of Hazardous Waste Technician Latest Code Status on File Code Status Date Activated Date Inactivated Comments Full Code 07/09/2015 8:36 AM 07/11/2015 1:31 PM Code Status History Code Status Date Activated Date Inactivated Comments Full Code 07/08/2015 7:01 PM 07/09/2015 8:36 AM Date Activated Date Inactivated Comments 07/09/2015 8:36 AM 07/11/2015 1:31 PM Date Activated Date Inactivated Comments 07/08/2015 7:01 PM 07/09/2015 8:36 AM Additional Source Comments INFORMATION SOURCE (unrecogn ized section and content) DATE CREATED AUTHOR 05/03/2019 Geeta Metzger [facility] DATE CREATED AUTHOR AUTHOR'S ORGANIZ ATION [facility]29/2022 [facility] DATE CREATED AUTHOR AUTHOR'S ORGANIZ ATION 06/23/2023 [facility] DATE CREATED AUTHOR AUTHOR'S ORGANIZ ATION 05/20/2024 [facility] EPIC Care Teams (unrecognized sec tion and content) Sr Vice President Relationship Specialty Start Date End Date Delicia Morales DO [address] [place] [id number] PCP - General 11/06/19 Sr Vice President Relationship Specialty Start Date End Date Delicia Morales [address] [place] [address] PCP - General 11/06/19 FOR RECORDS PERTAINING TO PATIENTS WHO ARE OR HAVE BEEN ENROLLED IN A CHEMICAL DEPENDENCY/SUBSTANCEABUSE PROGRAM, SOME INFORMATION MAY BE OMITTED. This clinical summary was aggregated from multiple sources. Caution should be exercised in using it in the provision of clinical care. This summary normalizes information from multiple sources, and as a consequence, information in this document may materially change the coding, format and clinical context of patient data. In addition, data may be omitted in some cases. CLINICAL DECISIONS SHOULD BE BASED ON THE PRIMARY CLINICAL RECORDS. [facility]. provides no warranty or guarantee of the accuracy or completeness of information in this document.
--- NOTE | 2024-06-06 11:40 | PM.PRESUREVA ---
History of Present Illness History of Present Illness Chief complaint: Missed Narrative: Mrs. Enedina German is a pleasant 29-year-old female who presents to presurgical testing with complaints of vaginal bleeding and missed . She is scheduled for D&C with suction on June [address] Trent Review of Systems ROS Narrative REVIEW OF SYSTEMS: Negative except as stated in HPI, ten or more systems reviewed. Constitutional: No fever, chills, weakness ENT: No sore throat or epistaxis Cardiovascular: No edema, chest pain, palpitations, or activity intolerance Respiratory: No shortness of breath, cough, or wheezing Musculoskeletal: No joint pain or swelling Gastrointestinal: No abdominal pain, constipation, diarrhea, or vomiting Genitourinary: No dysuria or hematuria Neurological: No numbness, tingling, weakness, or headache Psychiatric: No mood changes PFSH PFSH Medical History (Updated 06/06/24 @ 11:42 by Magda Michaels) Depression ?F32.A - Depression, unspecified (ICD-10) Anxiety ?F41.9 - Anxiety disorder, unspecified (ICD-10) Bronchitis ?J40 - Bronchitis, not specified as acute or chronic (ICD-10) Electronic cigarette use ?Z78.9 - Other specified health status (ICD-10) Hypothyroidism ?E03.9 - Hypothyroidism, unspecified (ICD-10) Family History (Updated 06/06/24 @ 11:23 by Magda Michaels) Other Family history of hypertension Family history of lung cancer Social History (Updated 06/06/24 @ 11:22 by Magda Michaels) Within the past year, how often did you have a drink containing alcohol: never Score interpretation: A score less than 3 is consistent with normal alcohol consumption. Smoking status: Current every day smoker Do you use any of these nicotine containing products: vaping products Non-prescribed substance use: denies use Previous occupational history: [employer]/ Highest level of school completed/degree received: high school graduate Meds Home Medications and Allergies Home Medications ?Medication ?Instructions ?Recorded ?Confirmed ?Type buprenorphine 8 mg-naloxone 2 mg 1 tab sublingual TID 06/06/24 06/06/24 History sublingual tablet levothyroxine 125 mcg tablet 125 mcg PO DAILY 06/06/24 06/06/24 History Allergies Allergy/AdvReac Type Severity Reaction Status Date / Time No Known Drug Allergies Allergy Verified 06/06/24 11:17 Exam Narrative Exam Narrative: Nurses note and vital signs reviewed and patient is not hypoxic. General: The patient appears well and in no apparent distress. Patient is resting comfortably on cart. Skin: Warm, dry, no pallor noted. There is no rash noted. Head: Normocephalic, atraumatic Eye: Normal conjunctiva, no drainage, EOMI. PERRL Ears, Nose, Mouth, and Throat: oral mucosa is moist. Nares patent. Mouth without vesicles. Ear canals patent. Tm's without Erythema Cardiovascular: Regular Rate and Rhythm Respiratory: Patient is in no distress, no accessory muscle use, lungs are clear to auscultation, no wheezing, rales or rhonchi Back: non-tender, no CVA tenderness bilaterally to percussion. GI: Normal bowel sounds, no tenderness to palpation, no masses appreciated. No rebound, guarding, or rigidity noted. Musculoskeletal: The patient has no evidence of calf tenderness, no pitting edema, symmetrical pulses noted bilaterally Neurological: A&O x4, normal speech Psychiatric: Cooperative Assessment and Plan Assessment and Plan (1) Missed : Plan Ms. Enedina German is scheduled for D&C with suction for diagnosis of missed with Dr. Samuel Trent on June 08, 2024
--- NOTE | 2024-06-06 11:49 | XR_ITS ---
The [address] [address] Patient Name: MCKINLEY HSIEH MRN: [id number] date: 1995 Sex: F Assigned Patient Location: SURGOUT Current Patient Location: [facility] Accession/Order Number: [id number] Exam Date: 06/06/2024 11:40 Report Date: 06/06/2024 14:57 At the request of: SHERIN BOYD Procedure: XR chest 2V EXAMINATION: XR chest 2V HISTORY: Preop exam COMPARISON: No relevant comparison available. TECHNIQUE: PA and lateral FINDINGS: LUNGS: No significant pulmonary parenchymal abnormalities. VASCULATURE: No increased pulmonary vasculature. PLEURA: No pneumothorax, effusion, or pleural thickening. CARDIAC: No cardiomegaly or cardiac silhouette abnormality. MEDIASTINUM: No visible mass or adenopathy. BONES: No fracture or visible bone lesion. OTHER: Negative. XR/XR chest 2V IMPRESSION: Normal examination. Electronically authenticated by: ARYA LEE Date: 06/06/2024 14:57
== END 2024-06-06 11:01 | disposition home or self-care (01) ==
LOC: PST 11:01
PROVIDERS: Visit Provider Obstetrics & Gynecology
DX: Z01.810 Encounter for preprocedural cardiovascular examination (principal); Z01.818 Encounter for other preprocedural examination; O02.1 Missed abortion
CPT/HCPCS: 71046; G0463

== ENCOUNTER 2024-06-08 06:13 | Day surgery (SDC) | payer OTHER, SELFPAY ==
[2024-06-06 11:22] VITALS: BP 126/83; PULSE 82; TEMP 36.3; O2SAT 94; BMI 38.8
--- OUTSIDE RECORDS SUMMARY | 2024-06-08 06:15 | XMS_ITS | CCD ---
Author Organization [facility] Care Team Providers Care Lead Java Developer Architect Name Role Phone NATESHANIA Referring Unavailable NATE SHANIA Primary Care Unavailable Nate DIRECTOR GEOTHERMAL OPERATIONS - Shania MARISCAL Primary Care Provider Delicia Morales DO Primary Care Provider TWAN ., DR DUFF Consulting Unavailable TWAN ., DR DUFF Admitting Unavailable [facility] Unava ilable TWAN ., DR DUFF Attending Unavailable [facility] Unava ilable GERA SANDERS Admitting Unavailable TOMMY, GERA Attending Unavailable GERA SANDERS Consulting Unavailable MISC, DR PAINTING Admitting Unavailable [facility] Unava ilable MISC, DR PAINTING Attending Unavailable MISC, DR PAINTING Consulting Unavailable ARYA GENTILE Consulting Unavailable PAY ., DR GUADARRAMA Attending Unavailable PAY ., DR GUADARRAMA Consulting Unavailable PAY ., DR GUADARRAMA Admitting Unavailable [facility] Unava ilable PHYSICIAN, UNKNOWN Referring Unavailable SERVICES, [facility] Primary Care Unava ilable Unavailable Primary Care Provider Unavailabl e Unavailable Primary Care Provider Unavailabl e Medications Current Medications Medication Drug Class(es) Dates Sig (Normalized) Sig (Original) albuterol 0.83 mg/ml inhalation solution (4 sources) beta2-Adrenergic Agonist albuterol (2.5 MG/3M L) 0.083% nebulizer solution every 6 (six) hours. Active buprenorphine 8 mg / naloxone 2 mg sublingual film (4 sources) Partial Opioid Agonist, Opioid Antagonist Buprenorphine HCl-Naloxone HCl (Suboxone) 8-2 MG SL film 1 (one) time each day at the same time. Active 24 hr buPROPion hydrochloride 300 mg extended release oral tablet (4 sources) Aminoketone buPROPion XL (Wellbutrin XL) 300 [...] 07/11/2015 Active hydroCHLOROthiazide 12.5 mg oral capsule (4 sources) Thiazide Diuretic hydroCHLOROthiazide (Microzide) 12.5 MG capsule 1 (one) time each day at the same time. Active levothyroxine sodium 0.125 mg oral tablet (4 sources) l-Thyroxine Start: 5 End: 5 take 1 tablet by mouth before mealtime levothyroxine (Synthroid) 125 MCG tablet Indications: Thyroid disease (CMS/HCC) Take 1 tablet (125 mcg) by mouth in the morning. Take before meals. 30 tablet 2 06/01/2024 07/01/2024 Active levothyroxine (T irosint) 100 MCG capsule 1 (one) time each day at the same time. Active MULTIPLE VITAMIN IV (4 sources) MULTIPLE VITAMIN IV 1 (one) time each day at the same time. 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; Translations: [OTH [facility] CURRENT DRUG THERAPY] Onset: 03-06-2023 Episodic Other female genital disorders (4 sources) Abnormal uterine bleeding; Translations: [Abnormal uterine [...] Episodic Other ear and sense organ disorders (4 sources) Acute otitis externa of right ear; Translations: [Unspecified acute noninfective otitis externa, right ear] Onset: 10-09-2022 10-09-2022 Episodic Other upper respiratory infections (4 sources) Acute upper respiratory infection, unspecified; Translations: [ACUTE UP RESPIRATORY INFECTION UNS] Onset: 01-16-2022 Episodic Results Test Name Value Interpretation Reference Range Facility XR CHEST 2Von 06-06-2024 [place] [address] XRay Report Signed Patient: ENEDINA HSIEH MR#: [id number] : 1995 Acct:[id number] Age/Sex: 29 / F ADM Date: 06/06/24 Loc: PST Attending Dr: Sherin Trent D.O. Ordering Physician: Sherin Trent D.O. Date of Service: 06/06/24 Procedure(s): XR chest 2V Accession Number(s): [id number] cc: Sherin Trent D.O.; Physician,Non-Staff M.DSebastian [address] [address] Patient Name: ENEDINA HSIEH MRN: [facility]:[id number] date: 1995 Sex: F Assigned Patient Location: [facility] Current Patient Location: [facility] Accession/Order Number: [id number] Exam Date: 06/06/2024 11:40 Report Date: 06/06/2024 14:57 At the request of: SHERIN TRENT Procedure: XR chest 2V EXAMINATION: XR chest 2V HISTORY: Preop exam COMPARISON: No relevant comparison available. TECHNIQUE: PA and lateral FINDINGS: LUNGS: No significant pulmonary parenchymal abnormalities. VASCULATURE: No increased pulmonary vasculature. PLEURA: No pneumothorax, effusion, or pleural thickening. CARDIAC: No cardiomegaly or cardiac silhouette abnormality. MEDIASTINUM: No visible mass or adenopathy. BONES: No fracture or visible bone lesion. OTHER: Negative. XR/XR chest 2V IMPRESSION: Normal examination. Electronically authenticated by: ARYA LEE Date: 06/06/2024 14:57 Dictated By: Arya Lee M.D. Signed By: 06/06/24 1459 DD/ 1457 TD/TT: Coding Advisor: [facility] Radiology, Radiologist, MD - 06/06/2024 [place] [address] XRay Report Signed Patient: ENEDINA HSIEH MR#: [id number] : 1995 Acct:[id number] Age/Sex: 29 / F ADM Date: 06/06/24 Loc: [facility] Attending Dr: Sherin Trent D.O. Ordering Physician: Sherin Trent D.O. Date of Service: 06/06/24 Procedure(s): XR chest 2V Accession Number(s): [id number] cc: Sherin Trent D.O.; Physician,Non-Staff Ximena The [address] [address] Patient Name: ENEDINA HSIEH MRN: [facility]:[id number] date: 1995 Sex: F Assigned Patient Location: [facility] Current Patient Location: [facility] Accession/Order Number: [id number] Exam Date: 06/06/2024 11:40 Report Date: 06/06/2024 14:57 At the request of: SHERIN TRENT Procedure: XR chest 2V EXAMINATION: XR chest 2V HISTORY: Preop exam COMPARISON: No relevant comparison available. TECHNIQUE: PA and lateral FINDINGS: LUNGS: No significant pulmonary parenchymal abnormalities. VASCULATURE: No increased pulmonary vasculature. PLEURA: No pneumothorax, effusion, or pleural thickening. CARDIAC: No cardiomegaly or cardiac silhouette abnormality. MEDIASTINUM: No visible mass or adenopathy. BONES: No fracture or visible bone lesion. OTHER: Negative. XR/XR chest 2V IMPRESSION: Normal examination. Electronically authenticated by: ARYA LEE Date: 06/06/2024 14:57 Dictated By: Arya Lee M.D. Signed By: 06/06/24 1459 DD/ 145 TD/TT: Coding Advisor: [facility] Radiology Study observation (narrative) [facility] XR CHEST 2VOrdered By: Radio logist Radiology on 06-06-2024 [facility] Work Phone: [facility] PREG QUANT HCGon 025 HCG QUANTITATIVE 602 mIU/mL [facility] Comment on above: 5-50 0.2-1 WEEK 50-500 1-2 WEEKS 100-5,000 2-3 WEEKS 500-10,000 3-4 WEEKS 1,000-50,000 4-5 WEEKS 10,000-100,000 5-6 WEEKS 15,000-200,000 6-8 WEEKS 10,000-100,000 2-3 MONTHS [facility] US OB TRANSVAGINALon 025 [place] [address] Ultrasound Report Signed Patient: ENEDINA HSIEH MR#: [id number] : 1995 Acct:[id number] Age/Sex: 29 / F ADM Date: 05/30/24 Loc: US Attending Dr: Sherin Trent D.O. Ordering Physician: Sherin Trent D.O. Date of Service: 05/30/24 Procedure(s): US OB transvaginal Accession Number(s): [id number] cc: Sherin Trent D.O.; Physician,Non-Staff Ximena The [place] [address] Patient Name: ENEDINA HSIEH MRN: [facility]:[id number] date: 1995 Sex: F Assigned Patient Location: Current Patient Location: Accession/Order Number: [id number] Exam Date: 05/30/2024 12:50 Report Date: 05/30/2024 [...] Signed By: 05/30/24 1532 DD/ 1530 TD/TT: Coding Advisor: [facility] Radiology, Radiologist, - 05/30/2024 [place] [address] Ultrasound Report Signed Patient: ENEDINA HSIEH MR#: [id number] : 1995 Acct:[id number] Age/Sex: 29 / F ADM Date: 05/30/24 Loc: US Attending Dr: Sherin Trent D.O. Ordering Physician: Sherin Trent D.O. Date of Service: 05/30/24 Procedure(s): US OB transvaginal Accession Number(s): [id number] cc: Sherin Trent D.O.; Physician,Non-Staff MOnesimo [place] [address] Patient Name: ENEDINA HSIEH MRN: [facility]:[id number] date: 1995 Sex: F Assigned Patient Location: [place] Current Patient Location: [place] Accession/Order Number: [id number] Exam Date: 05/30/2024 12:50 Report Date: 05/30/2024 [...] Signed By: 05/30/24 1532 DD/ 1530 TD/TT: Coding Advisor: [facility] Radiology Study observation (narrative) [facility] US OB TRANSVAGINALOrdered By : Radiologist Radiology on 05-30-2024 [facility] Work Phone: [facility] PREG QUANT HCGon 025 HCG QUANTITATIVE 6243 mIU/mL [facility] Comment on above: 5-50 0.2-1 WEEK 50-500 1-2 WEEKS 100-5,000 2-3 WEEKS 500-10,000 3-4 WEEKS 1,000-50,000 4-5 WEEKS 10,000-100,000 5-6 WEEKS 15,000-200,000 6-8 WEEKS 10,000-100,000 2-3 MONTHS [facility] US OB TRANSVAGINALon 025 US OB TRANSVAGINAL [...] SCREEN, URINEon 024 AMPHETAMINE/METHAMP Negative [facility] Comment on above: Result Comment: AMPH /METH screening cut off = 1000 ng/mL Performed By: #### D DIAZ #### [facility] ([id number]) [address] [place] [address] BARBITURATES Negative Normal NEG [facility] Comment on above: Result Comment: Josie iturates screening cut off value = 200 ng/mL Performed By: #### D DIAZ #### [facility] ([id number]) [address] [place] [address] BENZODIAZEPINES Negative Normal NEG [facility] Comment on above: Result Comment: Wilbert odiazepines screening cut off value = 200 ng/mL Performed By: #### D DIAZ #### [facility] ([id number]) [address], [address] [place] [address] CANNABINOIDS Negative Normal NEG [facility] Comment on above: Result Comment: Jared abinoids/THC screening cut off value = 50 ng/mL Performed By: #### D DIAZ #### [facility] ([id number]) [address] [place] [address] COCAINE METABOLITE Negative Normal NEG [facility] Comment on above: Result Comment: Coca ine screening cut off value = 300 ng/mL Performed By: #### D DIAZ #### [facility] ([id number]) [address] [place] [address] ECSTASY Negative Normal NEG [facility] Comment on above: Result Comment: Ecst asy screening cut off value = 500 ng/mL This report is intended for use in clinical monitoring or management of patients. Performed By: #### D DIAZ #### [facility] ([id number]) [address], [address] [place] [address] METHADONE Negative Normal NEG [facility] Comment on above: Result Comment: Meth adone screening cut off value = 300 ng/mL. Performed By: #### D DIAZ #### [facility] ([id number]) [address], [address] [place] [address] OPIATES Negative Normal NEG [facility] Comment on above: Result Comment: Opia мария screening cut off value = 300 ng/mL NOTE: This test is used for the detection of codeine, hydrocodone (>1000 ng/mL), morphine and hydromorphone (>900 ng/mL) in urine. Performed By: #### D DIAZ #### [facility] ([id number]) [address] [place] [address], [address] [place] [address] OXYCODONE Negative Normal NEG [facility] Comment on above: Result Comment: Oxyc odone screening cut off value = 300 ng/mL NOTE: This test is used for the detection of oxycodone and oxymorphone in urine. Performed By: #### D DIAZ #### [facility] ([id number]) [address] [place] [address], [address] [place] [address] PHENCYCLIDINE Negative Normal NEG [facility] Comment on above: Result Comment: Phen cyclidine screening cut off value = 25 ng/mL Performed By: #### D DIAZ #### [facility] ([id number]) [address] [place] [address], [address] [place] [address] Reference Lab Test IDon 05-27 BUPRENORPHINE, URINE, QUANTITATIVE/CONFIRMATI ON See Below Normal [facility] Comment on above: Result Comment: NOTE [...] developed and its performance characteristics determined by [facility]'s Misbah Serrano [facility] [place] [facility] It has not been cleared or approved by the FDA. -[facility] is regulated under CLIA as qualified to perform high-complexity testing. This test is used for clinical purposes. It should not be regarded as investigational or for research. Specimen Validity Quality See below Specimen quality results within acceptable limits Specimen Validity Creatinine 92.1 mg/dL 20.0-300.0 Specimen Validity PH 7.7 4.5-8.0 Specimen Validity Specific Korbel 1.012 1.003-1.035 Specimen Validity Oxidants <38 mg/L <200 Specimen Validity Nitrites <50 mg/L <500 Specimen Validity Chromate <10 mg/L <50 Test Performed By: [place] [address] Hydrocrane Operator: Toni Mitchell III, M.D. [place] #[id number] Performed By: #### 3 0896-5 #### [facility] ([id number]) [address] [place] [address] PAP ACOG PANEL 2: 21 to 29on 07-27-[address] [facility] Comment on above: Performed By: #### 4 [id number] #### [facility] [address] [place] [address] Dr. Reuben Courtney DIAGNOSIS: Comment [facility] Comment on above: Result Comment: NEGA TIVE FOR INTRAEPITHELIAL LESION OR MALIGNANCY. Performed By: #### 4 [id number] #### [facility] [address] [place] [address] [address] Reuben Courtney Methodology: Comment [facility] Comment on above: Result Comment: This liquid based ThinPrep(R) pap test was screened with the use of an image guided system. Performed By: #### 4 [id number] #### [facility] [address] [place] [address] Dr. Reuben Courtney Note: Comment [facility] Comment on above: Result Comment: The Pap smear is a screening test designed to aid in the detection of premalignant and malignant conditions of the uterine cervix. It is not a diagnostic procedure and should not be used as the sole means of detecting cervical cancer. Both false-positive and false-negative reports do occur. . Performed By: #### 4 [id number] #### [facility] [address] [place] [address] Dr. Reuben Courtney Performed by: Comment Normal [facility] Comment on above: Result Comment: Jeanne Avila, Directory Clerk (ASCP) Performed By: #### 4 [id number] #### [facility] [address] [place] [address] Dr. Reuben Courtney Reflex Criteria: Comment Normal [facility] Comment on above: Result Comment: The HPV DNA reflex criteria were not met with this specimen result therefore, no HPV testing was performed. . Performed By: #### 4 [id number] #### [facility] [address] [place] [address] Dr. Reuben Courtney Specimen adequacy: Comment Normal [facility] Comment on above: Result Comment: Sati sfactory for evaluation. Endocervical and/or squamous metaplastic cells (endocervical component) are present. Performed By: #### 4 [id number] #### [facility] [address] [place] [address] Dr. Reuben Courtney Age Gdln ACOG Testing Normal [facility] Comment on above: Performed By: #### 4 [id number] #### [facility] [address] [place] [address] Dr. Reuben Cuortney CHLAMYDIA/GONOCOCCUS ISABELL (SW AB/URINE/PAPon 07-23-2022 Chlamydia trachomatis, ISABELL Negative Normal Negative [facility] Comment on above: Performed By: #### C T/NGNA #### [facility] [address] [place] [address] Dr. Reuben Courtney Neisseria gonorrhoeae, ISABELL Negative Normal Negative [facility] Comment on above: Performed By: #### C T/NGNA #### [facility] [address] [place] [address] Dr. Reuben Courtney VAGINITIS/VAGINOSIS DNA PROB Massimo 07-22-2022 Connie species Negative Normal Negative [facility] Comment on above: Performed By: #### V AGINT #### [facility] [address] [place] [address] [address] Reuben Courtney Gardnerella vaginalis Negative Normal Negative [facility] Comment on above: Performed By: #### V AGINT #### [facility] [address] [place] [address] Dr. Reuben Courtney Trichomonas vaginalis Negative Normal Negative [facility] Comment on above: Performed By: #### V AGINT #### [facility] [address] [place] [address] Dr. Reuben Courtney HEP B SURFACE ANTIGEN SCREEN on 06-27-2022 HBsAg Screen Negative Normal Negative [facility] Comment on above: Performed By: #### H BSANS #### [facility] [address] [place] [address] Dr. Reuben Courtney HEPATITIS C ANTIBODYon 06-27 Hep C Virus Ab Non-Reactive Normal Non Reactive [facility] Comment on above: Result Comment: HCV antibody alone does not differentiate between previously resolved infection and active infection. Equivocal and Reactive HCV antibody results should be followed up with an HCV RNA test to support the diagnosis of active HCV infection. Performed By: #### H CV #### [facility] [address] [place] [address] Dr. Reuben Courtney HERPES SIMPLEX 1/2 IGGon HSV 1 IgG, Type Spec <0.91 Normal 0.00-0.90 [facility] Comment on above: Result Comment: Nega tive <0.91 Equivocal 0.91 - 1.09 Positive >1.09 Note: Negative indicates no antibodies detected to HSV-1. Equivocal may suggest early infection. If clinically appropriate, retest at later date. Positive indicates antibodies detected to HSV-1. Performed By: #### H SV IGG #### [facility] [address] [place] [address] Dr. Reuben Courtney HSV 2 IgG Type Spec <0.91 Normal 0.00-0.90 [facility] Comment on above: Result Comment: Nega tive <0.91 Equivocal 0.91 - 1.09 Positive >1.09 Note: Negative indicates no HSV-2 antibodies detected. Positive indicates HSV-2 antibodies detected. Equivocal and low positive HSV-2 screens (Index 0.91-5.00) may be false positive and are reflexed to supplemental testing in accordance with CDC guidelines. Performed By: #### H SV IGG #### [facility] [address] [place] [address] [address] Reuben Courtney HIV 1 AND 2 WITH REFLEXon HIV Screen 4th Generation wRfx Non-Reactive Normal Non Reactive [facility] Comment on above: Result Comment: HIV Negative HIV-1/HIV-2 antibodies and HIV-1 p24 antigen were NOT detected. There is no laboratory evidence of HIV infection. Performed By: #### H IV12 #### [facility] [address] [place] [address] [address] Reuben Courtney RPR QUANTon 06-27-2022 Rapid Plasma Reagin, Quant Non-Reactive Normal NonRea<1:1 [facility] Comment on above: Result Comment: Plea se Note: This test does not meet current guidelines for screening and diagnosis of syphilis. This test is intended for following treatment response in patients being treated for syphilis infection. To screen for syphilis infection, a reflex cascade that includes both RPR and a treponema-specific assay should be utilized, such as Treponema pallidum (Syphilis) Screening [place] (208197) or Rapid Plasma Reagin (RPR) Test With Reflex to Quantitative RPR and Confirmatory Treponema pallidum Antibodies (889893). Performed By: #### R PRQ #### [facility] [address] [place] [address] [address] Reuben Courtney XR CHEST 2 Von [...] by: ARYA GENTILE Date: 2022-01-16 10:40 Normal [facility] CBCon 05-02-2019 Erythrocyte distribution width (RBC) [Ratio] 13.8 % Normal 11.8-14.4 [facility] Comment on above: Performed By: #### C BC, CP, HCG #### [address] [place], [place] [id number] Thermite Welder: Jeffery Wagoner MD #### PHEP, HIVCMB #### [address] [id number] Thermite Welder: Tono Lopez MD Hematocrit (Bld) [Volume fraction] 41.6 % Normal 36.3-47.1 [facility] Comment on above: Performed By: #### C BC, CP, HCG #### [facility] [address] [place] [address] [place] [address] Thermite Welder: Jeffery Wagoner MD #### PHEP, HIVCMB #### [address] [id number] Thermite Welder: Tono Lopez MD Hemoglobin (Bld) [Mass/Vol] 13.5 g/dL Normal 11.9-15.1 [facility] Comment on above: Performed By: #### C BC, CP, HCG #### [address] [place], [place] [id number] Thermite Welder: Jeffery Wagoner MD #### PHEP, HIVCMB #### [address] [id number] Thermite Welder: Tono Lopez MD MCH (RBC) [Entitic mass] 27.7 pg Normal 25.2-33.5 [facility] Comment on above: Performed By: #### C BC, CP, HCG #### [address] [place], [place] [address] Thermite Welder: Jeffery Wagoner MD #### PHEP, HIVCMB #### [address] [id number] Thermite Welder: Tono Lopez MD MCHC (RBC) [Mass/Vol] 32.5 g/dL Normal 28.4-34.8 [facility] Comment on above: Performed By: #### C BC, CP, HCG #### [facility] [address] [place], [place] [id number] Thermite Welder: Jeffery Wagoner MD #### PHEP, HIVCMB #### [place] [address] [place], [place] [address] Thermite Welder: Tono Lopez MD MCV (RBC) [Entitic vol] 85.2 fL Normal 82.6-102.9 [facility] Comment on above: Performed By: #### C BC, CP, HCG #### [facility] [address] [place] [address] Thermite Welder: Jeffery Wagoner MD #### PHEP, HIVCMB #### [address] [id number] Thermite Welder: Tono Lopez MD NRBC Automated 0.0 per 100 WBC Normal 0.0 [facility] Comment on above: Performed By: #### C BC, CP, HCG #### [facility] [address] [place], [place] [id number] Thermite Welder: Jeffery Wagoner MD #### PHEP, HIVCMB #### [address] [id number] Thermite Welder: Tono Lopez MD Platelet mean volume (Bld) [Entitic vol] 9.0 fL Normal 8.1-13.5 [facility] Comment on above: Performed By: #### C BC, CP, HCG #### [facility] [address] [place], [place] [id number] Thermite Welder: Jeffery Wagoner MD #### PHEP, HIVCMB #### [address] [id number] Thermite Welder: Tono Lopez MD Platelets (Bld) [#/Vol] 564 10*3/uL High 138-453 [facility] Comment on above: Performed By: #### C BC, CP, HCG #### [facility] [address] [place] [address] Thermite Welder: Jeffery Wagoner MD #### PHEP, HIVCMB #### [place] [address] [place], [place] [id number] Thermite Welder: Tono Lopez MD RBC (Bld) [#/Vol] 4.88 10*6/uL Normal 3.95-5.11 [facility] Comment on above: Performed By: #### C BC, CP, HCG #### [facility] [address] [place] [address] Thermite Welder: Jeffery Wagoner MD #### PHEP, HIVCMB #### [place] [address] [place], [place] [address] Thermite Welder: Tono Lopez MD WBC (Bld) [#/Vol] 12.2 10*3/uL High 3.5-11.3 [facility] Comment on above: Performed By: #### C BC, CP, HCG #### [address] [place] [address] Thermite Welder: Jeffery Wagoner MD #### PHEP, HIVCMB #### [address] [id number] Thermite Welder: Tono Lopez MD CBCOrdered By: Shania Sullivan on 05-02-2019 Erythrocyte distribution width (RBC) [Ratio] 13.8 % 11.8 - 14.4 % [facility] [employer] Phone: Hematocrit (Bld) [Volume fraction] 41.6 % 36.3 - 47.1 % [facility] [employer] Phone: Hemoglobin (Bld) [Mass/Vol] 13.5 g/dL 11.9 - 15.1 g/dL [facility] [employer] Phone: Interpretation and review of laboratory results Abnormal [employer] Phone: MCH (RBC) [Entitic mass] 27.7 pg 25.2 - 33.5 pg [employer] Phone: MCHC (RBC) [Mass/Vol] 32.5 g/dL 28.4 - 34.8 g/dL [facility] [employer] Phone: MCV (RBC) [Entitic vol] 85.2 fL 82.6 - 102.9 fL [employer] Phone: NRBC Automated 0.0 0.0 per 100 WBC [employer] Phone: Platelet mean volume (Bld) [Entitic vol] 9.0 fL 8.1 - 13.5 fL [employer] Phone: Platelets (Bld) [#/Vol] 564 10*3/uL [facility] [employer] Phone: RBC (Bld) [#/Vol] 4.88 10*6/uL 3.95 - 5.1 1 m/uL [facility] [employer] Phone: WBC (Bld) [#/Vol] 12.2 10*3/uL [employer] [facility] [employer] [facility] Phone: Comp Metabolic Profon 2019 (cont.) Normal [facility] Comment on above: Result Comment: Aver age GFR for 20-29 years old: 116 mL/min/1.73sq m Chronic Kidney Disease: <60 mL/min/1.73sq m Kidney failure: <15 mL/min/1.73sq m eGFR calculated using average adult body mass. Additional eGFR calculator available at: http://www.[employer]/multiple_crcl_2011.htm Performed By: #### C BC, CP, HCG #### [facility] [address] [place] [address] [employer]mite Welder: Jeffery Wagoner MD #### PHEP, HIVCMB #### [address] [address] Thermite Welder: Tono Lopez MD Albumin [Mass/Vol] 4.2 g/dL Normal 3.5-5.2 [facility] Comment on above: Performed By: #### C BC, CP, HCG #### [facility] [address] [place], [place] [phone] Thermite Welder: Jeffery Wagoner MD #### PHEP, HIVCMB #### [address] [address] Thermite Welder: Tono Lopez MD Albumin/Globulin [Mass ratio] 1.4 {ratio} Normal 1.0-2.5 [facility] Comment on above: Performed By: #### C BC, CP, HCG #### [facility] [address] [place] [address] [place] [place], [place] [phone] Thermite Welder: Jeffery Wagoner MD #### PHEP, HIVCMB #### [address] [address] Thermite Welder: Tono Lopez MD Alkaline Phos 90 U/L Normal 35-104 [facility] Comment on above: Performed By: #### C BC, CP, HCG #### [facility] [address] [place] [address] [place], [place] [phone] Thermite Welder: Jeffery Wagoner MD #### PHEP, HIVCMB #### [address] [address] Thermite Welder: Tono Lopez MD ALT [Catalytic activity/Vol] 19 U/L Normal 5-33 [facility] Comment on above: Performed By: #### C BC, CP, HCG #### [facility] [address] [place] [address] [place] [address] Thermite Welder: Jeffery Wagoner MD #### PHEP, HIVCMB #### [address] [address] Thermite Welder: Tono Lopez MD Anion gap [Moles/Vol] 15 mmol/L Normal 9-17 [facility] Comment on above: Performed By: #### C BC, CP, HCG #### [facility] [address] [place], [place] [phone] Thermite Welder: Jeffery Wagoner MD #### PHEP, HIVCMB #### [address] [id number] Thermite Welder: Tono Lopez MD AST [Catalytic activity/Vol] 23 U/L Normal <32 [facility] Comment on above: Performed By: #### C BC, CP, HCG #### [facility] [address] [place] [address] [place], [place] [phone] Thermite Welder: Jeffery Wagoner MD #### PHEP, HIVCMB #### [address] [address] Thermite Welder: Tono Lopez MD Bilirubin Ql (U) 0.32 mg/dL Normal 0.3-1.2 [facility] Comment on above: Performed By: #### C BC, CP, HCG #### [address] [place], [place] [phone] Thermite Welder: Jeffery Wagoner MD #### PHEP, HIVCMB #### [facility] [address] [place] [address] Thermite Welder: Tono Lopez MD BUN/CRE Ratio 3 Low 9-20 [facility] Comment on above: Performed By: #### C BC, CP, HCG #### [facility] [address] [place], [place] [phone] Thermite Welder: Jeffery Wagoner MD #### PHEP, HIVCMB #### [facility] [address] [place] [address] Thermite Welder: Tono Lopez MD Calcium [Mass/Vol] 9.3 mg/dL Normal 8.6-10.4 [facility] Comment on above: Performed By: #### C BC, CP, HCG #### [facility] [address] [place], [place] [address]8783 Thermite Welder: Jeffery Wagoner MD #### PHEP, HIVCMB #### [address] [phone] Thermite Welder: Tono Lopez MD Chloride [Moles/Vol] 93 mmol/L Low 98-107 [facility] Comment on above: Performed By: #### C BC, CP, HCG #### [facility] [address] [place], [place] [phone] Thermite Welder: Jeffery Wagoner MD #### PHEP, HIVCMB #### [address] [phone] Thermite Welder: Tono Lopez MD CO2 [Moles/Vol] 27 mmol/L Normal 20-31 [facility] Comment on above: Performed By: #### C BC, CP, HCG #### [facility] [address] [place] [address] [place], [place] [phone] Thermite Welder: Jeffery Wagoner MD #### PHEP, HIVCMB #### [address] [phone] Thermite Welder: Tono Lopez MD Creatinine [Mass/Vol] 0.59 mg/dL Normal 0.50-0.90 [facility] Comment on above: Performed By: #### C BC, CP, HCG #### [facility] [address] [place], [place] [phone] Thermite Welder: Jeffery Wagoner MD #### PHEP, HIVCMB #### [address] [phone] Thermite Welder: Tono Lopez MD GFR, Amer >60 Normal >60 [facility] Comment on above: Performed By: #### C BC, CP, HCG #### [facility] [address] [place] [place] [address] Thermite Welder: Jeffery Wagoner MD #### PHEP, HIVCMB #### [address] [place], [place] [phone] Thermite Welder: Tono Lopez MD GFR,non Amer >60 Normal >60 [facility] Comment on above: Performed By: #### C BC, CP, HCG #### [facility] [address] [place] [place] [address] Thermite Welder: Jeffery Wagoner MD #### PHEP, HIVCMB #### [address] [id number] Thermite Welder: Tono Lopez MD Glucose [Mass/Vol] 96 mg/dL Normal 70-99 [facility] Comment on above: Performed By: #### C BC, CP, HCG #### [facility] [address] [place], [place] 5874983 Thermite Welder: Jeffery Wagoner MD #### PHEP, HIVCMB #### [address] [address] Thermite Welder: Tono Lopez MD Potassium [Moles/Vol] 3.7 mmol/L Normal 3.7-5.3 [facility] Comment on above: Performed By: #### C BC, CP, HCG #### [facility] [address] [place], [place] [phone] Thermite Welder: Jeffery Wagoner MD #### PHEP, HIVCMB #### [address] [address] Thermite Welder: Tono Lopez MD Protein [Mass/Vol] 7.1 g/dL Normal 6.4-8.3 [facility] Comment on above: Performed By: #### C BC, CP, HCG #### [facility] [address] [place], [place] [phone] Thermite Welder: Jeffery Wagoner MD #### PHEP, HIVCMB #### [address] [place] [address] Thermite Welder: Tono Lopez MD Sodium [Moles/Vol] 135 mmol/L Normal 135-144 [facility] Comment on above: Performed By: #### C BC, CP, HCG #### [facility] [address] [place], [place] [phone] Thermite Welder: Jeffery Wagoner MD #### PHEP, HIVCMB #### [address] [address] Thermite Welder: Tono Lopez MD Staging: Normal [facility] Comment on above: Result Comment: Stag e 1: Some kidney damage normal GFR Stage 2: Mild kidney damage GFR 60-89 Stage 3: Moderate kidney damage GFR 30-59 Stage 4: Severe kidney damage GFR 15-29 Stage 5: Severe kidney damage GFR <15 ESRD - chronic treatment by dialysis or transplant Performed By: #### C BC, CP, HCG #### [facility] [address] [place] [address] [place], [place] [phone] Thermite Welder: Jeffery Wagoner MD #### PHEP, HIVCMB #### [address] [address] Thermite Welder: Tono Lopez MD Urea nitrogen [Mass/Vol] 2 mg/dL Low 6-20 [facility] Comment on above: Performed By: #### C BC, CP, HCG #### [facility] [address] [place] [address] [place], [place] [phone] Thermite Welder: Jeffery Wagoner MD #### PHEP, HIVCMB #### [address] [address] Thermite Welder: Tono Lopez MD Comprehensive Metabolic Pane lOrdered By: Shania Sullivan on 05-02-2019 Albumin [Mass/Vol] 4.2 g/dL 3.5 - 5.2 g/dL [facility] [employer] Work Phone: Albumin/Globulin [Mass ratio] 1.4 {ratio} [facility] [employer] [facility] Phone: ALP [Catalytic activity/Vol] 90 U/L 35 - 104 U/L [facility] Phone: ALT [Catalytic activity/Vol] 19 U/L 5 - 33 U/L [facility] [employer] [facility] Phone: Anion gap [Moles/Vol] 15 mmol/L 9 - 17 mmol/L [facility] [employer] Phone: AST [Catalytic activity/Vol] 23 U/L <32 [facility] [employer] Phone: Bilirubin [Mass/Vol] 0.32 mg/dL 0.3 - 1 .2 mg/dL [facility] [employer] Phone: Bun/Cre Ratio 3 Low [facility] [employer] Work Phone: Calcium [Mass/Vol] 9.3 mg/dL 8.6 - 10. 4 mg/dL [facility] [employer] Phone: Chloride [Moles/Vol] 93 mmol/L Low 98 - 10 7 mmol/L [facility] [employer] Phone: CO2 [Moles/Vol] 27 mmol/L 20 - 31 mmol/L [facility] Work Phone: Creatinine [Mass/Vol] 0.59 mg/dL 0.5 - 0.9 mg/dL [facility] [employer] Phone: GFR >60 >60 mL/min [facility] [employer] Phone: GFR Comment [facility] [employer] Phone: Comment on above: Average GFR for 20-2 9 years old: 116 mL/min/1.73sq m Chronic Kidney Disease: <60 mL/min/1.73sq m Kidney failure: <15 mL/min/1.73sq m eGFR calculated using average adult body mass. Additional eGFR calculator available at: http://www.[employer]/multiple_crcl_2012.htm GFR Non- >60 >60 mL/min [employer] Phone: GFR Staging [facility] [employer] Phone: Comment on above: Stage 1: Some kidney damage normal GFR Stage 2: Mild kidney damage GFR 60-89 Stage 3: Moderate kidney damage GFR 30-59 Stage 4: Severe kidney damage GFR 15-29 Stage 5: Severe kidney damage GFR <15 ESRD - chronic treatment by dialysis or transplant Glucose [Mass/Vol] 96 mg/dL 70 - 99 mg/dL [employer] Phone: Interpretation and review of laboratory results Abnormal [facility] [employer] Phone: Potassium [Moles/Vol] 3.7 mmol/L 3.7 - 5.3 mmol/L [facility] [employer] Phone: Protein [Mass/Vol] 7.1 g/dL 6.4 - 8.3 g/dL [facility] [employer] Phone: Sodium [Moles/Vol] 135 mmol/L 135 - 144 mmol/L [facility] [employer] Phone: Urea nitrogen [Mass/Vol] 2 mg/dL Low 6 - 20 mg/dL [facility] [employer] Phone: HCG Qualitative, SerumOrdere d By: Shania Sullivan on 05-02-2019 hCG Qual Negative NEGATIVE [facility] [employer] Phone: Comment on above: Specimens with hCG l evels near the threshold of the test (25 mIU/mL) may give a negative or indeterminate result. In such cases, another test should be performed with a new specimen in 48-72 hours. If early is suspected clinically in this setting, correlation with quantitative serum b-hCG level is suggested. [employer] has confirmed the use of plasma for this test. This has not been cleared or approved by the U.S. Food and Drug Administration. The FDA has determined that such clearance is not necessary. HCG Screen, Bloodon 05-02-19 20 HCG Qn Negative Normal NEG [facility] Comment on above: Result Comment: Spec imens with hCG levels near the threshold of the test (25 mIU/mL) may give a negative or indeterminate result. In such cases, another test should be performed with a new specimen in 48-72 hours. If early is suspected clinically in this setting, correlation with quantitative serum b-hCG level is suggested. [facility] has confirmed the use of plasma for this test. This has not been cleared or approved by the U.S. Food and Drug Administration. The FDA has determined that such clearance is not necessary. Performed By: #### C BC, CP, HCG #### [address] [place] [address] Thermite Welder: Jeffery Wagoner MD #### PHEP, HIVCMB #### [facility] [address] [place], [place] [phone] Thermite Welder: Tono Lopez MD HIV Ag/Abon 05-02-2019 HIV Ag/Ab NONREACTIVE Normal NR [facility] Comment on above: Result Comment: No l aboratory evidence of HIV infection. If acute HIV infection is suspected, consider testing for HIV-1 RNA. Performed By: #### C BC, CP, HCG #### [address] [place] [address] Thermite Welder: Jeffery Wagoner MD #### PHEP, HIVCMB #### [facility] [address] [place], [place] [phone] Thermite Welder: Tono Lopez MD HIV ScreenOrdered By: Shania Sullivan on 05-02-2019 HIV Ag/Ab Non-Reactive NONREACTIVE [facility] Work Phone: Comment on above: No laboratory eviden ce of HIV infection. If acute HIV infection is suspected, consider testing for HIV-1 RNA. Hepatitis Acute [facility] 05-02 Hep A Ab,IgM NONREACTIVE Normal NR [facility] Comment on above: Performed By: #### C BC, CP, HCG #### [facility] [address] [place], [place] [phone] Thermite Welder: Jeffery Wagoner MD #### PHEP, HIVCMB #### [address] [phone] Thermite Welder: Tono Lopez MD Hep B Core Ab,IgM NONREACTIVE Normal [facility] Comment on above: Performed By: #### C BC, CP, HCG #### [address] [place] [address] Thermite Welder: Jeffery Wagoner MD #### PHEP, HIVCMB #### [address] [phone] Thermite Welder: Tono oLpez MD Hep B Surf Ag NONREACTIVE Normal NR [facility] Comment on above: Performed By: #### C BC, CP, HCG #### [address] [place], [place] [phone] Thermite Welder: Jeffery Wagoner MD #### PHEP, HIVCMB #### [address] [phone] Thermite Welder: Tono Lopez MD Hep C Ab NONREACTIVE Normal [facility] Comment on above: Result Comment: The [...] By: #### C BC, CP, HCG #### [address] [place], [place] [phone] Thermite Welder: Jeffery Wagoner MD #### PHEP, HIVCMB #### [address] [place] [address] Thermite Welder: Tono Lopez MD Hepatitis Panel, AcuteOrdere d By: Shania Sullivan on 05-02-2019 HAV IgM IA Qn (S) Non-Reactive NONREACTIVE [facility] Work Phone: Hep B Core Ab, IgM Non-Reactive NONREACTIVE [facility] [employer] Work Phone: Hepatitis B Surface Ag Non-Reactive NONREACTIVE [facility] Work Phone: Hepatitis C Ab Non-Reactive NONREACTIVE [facility] Work Phone: Comment on above: The hepatitis [...] Date Encounter Type Care Provider Facility Start: 06-06-2024 End: 06-06-2024 Clinisync Result Encounter Sherin Twan DO Work Phone: [facility] External Department Unsolicited Start: 06-06-2024 End: 06-06-2024 Clinisync Result Encounter Sherin Twan DO Work [...] Available Start: 10-10-2023 End: 10-10-2023 Letter encounter [place] Uy DO Work Phone: [facility] Start: 07-04-2023 Letter encounter [facility] Work Phone: Start: 06-10-2023 End: 06-11-2023 ambulatory UNKNOWN PHYSICIAN [facility] Start: 07-20-2022 End: 07-20-2022 ambulatory [facility] Facility:[facility] Start: 07-05-2022 Letter encounter [place] [facility] Start: 06-26-2022 End: 06-27-[address] SHERIN TRENT . Facility:[facility] Start: 01-16-2022 End: 01-17-[address] DOCTOR WALTON Facility:[facility] Start: 05-02-2019 End: 05-03-2019 Patient encounter procedure SHANIA SULLIVAN [facility] Start: 05-02-2019 End: 05-02-2019 Subsequent hospital visit by physician Shania Sullivan APRN - DAVEY Work Phone: [facility] Laboratory Procedures Date Procedure Procedure Detail Performing Clinician Start: 06-06-2024 XR CHEST 2V Sherin Fazi o DO Work Phone: Start: 05-30-2024 US OB TRANSVAGINAL Core y Twan DO Work Phone: Start: 05-30-2024 [facility] PREG QUANT HCG Core y Twan DO Work Phone: Start: 05-18-2024 [facility] PREG QUANT HCG Core y Twan DO Work Phone: Start: 05-02-2019 Acute hepatitis panel E MARIE SULLIVAN Start: 05-02-2019 Antibody hiv-1&hiv-2 single result SHANIA SULLIVAN Start: 05-02-2019 Blood count complete automated SHANIA SULLIVAN Start: 05-02-2019 Comprehensive metabo lic panel SHANIA SULLIVAN Start: 05-02-2019 Gonadotropin chorion ic qualitative SHANIA SULLIVAN Start: 05-02-2019 Antibody hiv-1&hiv-2 single result Shania Sullivan DIRECTOR [employer]PERATIONS - DISPLAY TRIMMER Work Phone: Start: 05-02-2019 Comprehensive metabo lic panel Shania Sullivan DIRECTOR [employer]PER[employer] - DISPLAY TRIMMER Work Phone: Plan of Treatment Date Care Activity Detail Author Start: 2046 Shingles (RZV) Vacci ne (1 of 2) Shingles (RZV) Vaccine (1 of 2) [facility] Start: 05-21-2025 Tetanus vaccination Tetanus (T d or Tdap) Booster [facility] Start: 06-01-2024 End: 06-01-2024 ambulatory 06/01/2024 11:00 AM EST Initial [facility] [address] [place] [address] [facility] Start: 06-01-2024 End: 06-01-2024 Professional / ancillary services management 06/01/2024 10:30 AM EST Ancillary Procedure [facility] [address] [place] [address] [facility] Start: 12-25-2022 COVID-19 Vaccine ( season) COVID-19 Vaccine ( season) [facility] Start: 12-25-2022 Influenza vaccination Influenza Vacc ine (#1) [facility] Start: 01-24-2022 Influenza vaccination Influenza Vacc ine (#1) [facility] Start: 2017 Screening for malign ant neoplasm of cervix Pap Smear [facility] Start: 2014 Hepatitis C screening Hepatitis C An tibody [facility] Start: 1996 COVID-19 Vaccine (#1) COVID-19 Vacci ne (#1) [facility] Immunizations Immunization Date Immunization Notes Care Provider Coral dickinson 05-21-2015 tetanus toxoid, redu juan david diphtheria toxoid, and acellular pertussis vaccine, adsorbed Del[place] Uy DO Work Phone: [facility] 01-28-2015 influenza, injectabl e, quadrivalent, preservative free [place] Uy DO Work Phone: [facility] Work Phone: 01-28-2015 influenza virus vacc ine, unspecified formulation Delicia Uy DO Work Phone: [facility] 07-12-2014 hepatitis A vaccine, pediatric/adolescent dosage, 2 dose schedule [place] Uy DO Work Phone: [facility] 10-11-2013 hepatitis A vaccine, pediatric/adolescent dosage, 2 dose schedule Delicia Uy DO Work Phone: [facility] 10-11-2013 meningococcal polysaccharide (groups A, C, Y and W-135) diphtheria toxoid conjugate vaccine (MCV4P) Delicia Uy DO Work Phone: [facility] 01-26-2012 human papilloma viru s vaccine, quadrivalent [place] Uy DO Work Phone: [facility] 01-26-2012 Meningococcal, MCV4, unspecified conjugate formulation(groups A, C, Y and W-135) [place] Uy DO Work Phone: [facility] 01-26-2012 tetanus toxoid, redu juan david diphtheria toxoid, and acellular pertussis vaccine, adsorbed Delicia Uy DO Work Phone: [facility] 05-08-2008 influenza, seasonal, injectable [place] Uy DO Work Phone: [facility] 05-24-2007 human papilloma viru s vaccine, quadrivalent [place] Uy DO Work Phone: [facility] 01-11-2007 human papilloma viru s vaccine, quadrivalent [place] Uy DO Work Phone: [facility] 10-21-2001 diphtheria, tetanus toxoids and acellular pertussis vaccine, 5 pertussis antigens [place] Uy DO Work Phone: [facility] 10-19-2001 measles, mumps and rubella virus vaccine Delicia Uy DO Work Phone: [facility] 10-19-2001 poliovirus vaccine, inactivated Delicia Uy DO Work Phone: [facility] 05-03-1997 haemophilus influenz ae type b vaccine, HbOC conjugate Delicia Uy DO Work Phone: [facility] 05-03-1997 measles, mumps and rubella virus vaccine Delicia Uy DO Work Phone: [facility] 1996 haemophilus influenz ae type b vaccine, HbOC conjugate Delicia Uy DO Work Phone: [facility] 1996 hepatitis B vaccine, pediatric or pediatric/adolescent dosage Delicia Uy DO Work Phone: [facility] 1996 poliovirus vaccine, inactivated Delicia Uy DO Work Phone: [facility] 1996 haemophilus influenz ae type b vaccine, HbOC conjugate Delicia Uy DO Work Phone: [facility] 1996 poliovirus vaccine, inactivated Delicia Uy DO Work Phone: [facility] 1996 poliovirus vaccine, inactivated [place] Uy DO Work Phone: [facility] 1996 haemophilus influenz ae type b vaccine, HbOC conjugate [place] Uy DO Work Phone: [facility] 1996 hepatitis B vaccine, pediatric or pediatric/adolescent dosage Delicia Uy DO Work Phone: [facility] 1996 hepatitis B vaccine, pediatric or pediatric/adolescent dosage [place] Uy DO Work Phone: [facility] Payers Date Payer Category Payer Private Health Insurance [employer] [id number] 2014 Medicaid [id number] 2014 Unknown TG [facility] MEDICAID xxxxxxxxxxx 2014-Present [phone] CLAIMS DEPARTMENT [address] [place] [address] xxxxxxxxxxx [id number] 1996 Unknown [id number] 1996 Unknown [id number] 1996 Unknown [id number] 1996 Unknown [id number] 1996 Unknown [id number] 1996 Unknown [id number] 1996 Unknown [id number] 1959 Unknown [id number] 1959 Unknown [id number] Social History Date Type Detail Facility Tobacco smoking stat us [facility]IS Unknown if ever smoked [employer] Phone: Start: 1996 Sex Assigned At Not on file M [employer] Phone: Start: 01-24-2013 End: 09-30-2022 Tobacco smoking status AZIS Smokes tobacco daily [facility] Start: 01-24-2013 History of tobacco use Cigarette Smo ker [facility] Start: 01-17-2016 End: 10-09-2022 Cigarettes smoked current (pack per day) [facility] Start: 01-17-2016 Tobacco use and exposure Smokeless tobacco [facility] Start: 06-10-2021 Alcohol intake Current non-dr automatic thread winder of alcohol (finding) [facility] Start: 09-11-2018 End: 10-09-2022 Tobacco use panel [facility] Work Phone: Start: 10-09-2022 Alcoholic beverage intake Lifetime non-drinker (finding) [facility] Start: 09-30-2022 Tobacco Comment 5 or less cigarettes/day. [facility] Start: 09-30-2022 Alcohol Comment Caffeine intak e: 1-2 cups per day [facility] Healthcare Summary Purpose Family History No Family History Records FoundNo Family History Records FoundNo Family History Records FoundNo Family History Records Found Advance Directives Documents on File Type Date Recorded Patient Personal Trainer Expl anation Advance Directives and Living Will Power of Laborer Tin Can Latest Code Status on File Code Status [...] content) DATE CREATED AUTHOR 05/03/2019 [facility] DATE CREATED AUTHOR AUTHOR'S ORGANIZ ATION 07/29/2022 [facility] DATE CREATED AUTHOR AUTHOR'S ORGANIZ ATION 06/23/2023 [place] DATE CREATED AUTHOR AUTHOR'S ORGANIZ ATION 05/20/2024 [facility] EP[employer] Care Teams (unrecognized sec tion and content) Lead Java Developer Architect Relationship Specialty Start Date End Date Delicia Morales DO [address] [place] [address] PCP - General 11/06/19 Lead Java Developer Architect Relationship Specialty Start Date End Date Delicia Morales DO [address] [place] [address] PCP - General 11/06/19 FOR RECORDS PERTAINING [...] BE BASED ON THE PRIMARY CLINICAL RECORDS. [facility]. provides no warranty or guarantee of the accuracy or completeness of information in this document.
[2024-06-08 06:36] LABS: Basophils Absolute Auto 0.1 10^3/uL (0.0-0.1); Basophils Percent Auto 0.5 % (0.2-2.0); Eosinophils Absolute Auto 0.2 10^3/uL (0.0-0.7); Eosinophils Percent Auto 2.5 % (0.9-7.0); Hematocrit 39.5 % (36.0-48.0); Hemoglobin 13.5 g/dL (12.0-16.0); Immature Granulocytes Abs Auto 0.01 10^3/uL (0.00-0.03); Immature Granulocytes Pct Auto 0.1 % (0.0-0.5); Lymphocytes Absolute Auto 3.6 10^3/uL (1.2-3.8); Lymphocytes Percent Auto 37.4 % (20.5-60.0); Mean Corpuscular HGB Conc 34.2 g/dL (29.9-35.2); Mean Corpuscular Hemoglobin 31.5 pg (26.7-34.0); Mean Corpuscular Volume 92.1 fL (81.0-99.0); Mean Platelet Volume 8.9 fL (9.5-13.5); Monocytes Absolute Auto 0.8 10^3/uL (0.3-0.8); Monocytes Percent Auto 8.3 % (1.7-12.0); Neutrophils Absolute Auto 4.9 10^3/uL (1.4-6.5); Neutrophils Percent Auto 51.2 % (43.0-75.0); Platelet Count 272 10^3/uL (150-450); Red Blood Count 4.29 10^6/uL (4.20-5.40); Red Cell Distribution Width 13.1 % (11.0-15.0); White Blood Count 9.7 10^3/uL (4.0-11.0)
[2024-06-08 06:42] LABS: Amphetamine Screen Urine NEGATIVE (NEGATIVE); Barbiturates Screen Urine NEGATIVE (NEGATIVE); Benzodiazepines Screen Urine NEGATIVE (NEGATIVE); Buprenorphine Screen Urine POSITIVE (NEGATIVE); Cannabinoid Screen Urine NEGATIVE (NEGATIVE); Cocaine Screen Urine NEGATIVE (NEGATIVE); Methadone Screen Urine NEGATIVE (NEGATIVE); Methamphetamines Screen Urine NEGATIVE (NEGATIVE); Opiate Screen Urine NEGATIVE (NEGATIVE); Oxycodone Screen Urine NEGATIVE (NEGATIVE); Phencyclidine Screen Urine NEGATIVE (NEGATIVE); Tricyclic Antidepressant Urine NEGATIVE (NEGATIVE)
[2024-06-08 06:45] VITALS: BP 128/76; PULSE 90; TEMP 36.3; O2SAT 96; BMI 38.8
[2024-06-08 06:51] LABS: HCG Quantitative 171 mIU/mL
[2024-06-08] MEDS: LACTATED RINGER'S SOLUTION 1,000 ML 50 ML IV (07:08)
[2024-06-08 08:12] VITALS: BP 119/68; PULSE 87; TEMP 36.2; O2SAT 96
--- NOTE | 2024-06-08 08:25 | PM.ONB ---
Brief Operative Note Date of procedure: 06/08/24 Pre-op diagnosis general: incomplete first trimester Post-op diagnosis: same as pre-op Procedure: NAME OF PROCEDURE: [D&C suction ] PROCEDURE: The patient was taken back to the OR where she was given general anesthesia without difficulty. She was then placed in dorsal lithotomy position, prepped and draped in the normal sterile fashion. A weighted speculum was placed in the patient's vagina and the anterior lip of the cervix was identified and grasped with a single-tooth tenaculum. The patient was then gently dilated using Hegar dilators after we had sounded roughly to 12 cm. The suction curette was then tested. The suction curette was then placed in the patient's uterus and products of conception were removed using an 10-[place] suction curette. ?Excellent hemostasis was noted. The patient tolerated the procedure well. Sponge, lap, and needle counts were correct x 2. All instruments were then removed from the patient's vagina. The patient was taken to the Recovery Room in stable condition. ?? Anesthesia: MAC Surgeon: Samuel Trent Estimated blood loss (mL): 5 Pathology: other (poc) Condition: stable Disposition: PACU Urinary Catheter Management Urinary Catheter Management Urethral: Cath placed during this visit: no
[2024-06-08 08:27] VITALS: BP 113/59; PULSE 79; O2SAT 100
[2024-06-08] MEDS: RHO(D) IMMUNE GLOBULIN 1,500 UNIT SYRINGE 1500 UNIT IM (08:53)
[2024-06-08 08:57] VITALS: BP 129/78; PULSE 84; O2SAT 98
== END 2024-06-08 09:20 | disposition home or self-care (01) ==
PROVIDERS: Visit Provider Obstetrics & Gynecology
PROC: (CPT 1965; principal; 2024-06-08 07:30)
DX: O03.4 Incomplete spontaneous abortion without complication (principal); F17.290 Nicotine dependence, other tobacco product, uncomplicated; E03.9 Hypothyroidism, unspecified
CPT/HCPCS: 59812; 36415; 80307; 84702; 85025; 86850; 86900; 86901; 88305; J1100; J1885; J2250; J2704; J2791; J3010